=== PATIENT | male | born 1945 | race Caucasian/White ===

== ENCOUNTER 2016-12-20 17:00 | Inpatient (IN) | payer MEDICARE, OTHER ==
[~2016-12-20] VITALS: Ht 170.2 cm; Wt 114.3 kg
[2016-12-20 17:25] VITALS: BP 123/65; PULSE 76; RESP 18; TEMP 99.1; O2SAT 96
[2016-12-20] MEDS ORDERED: RANO500 PO (18:36)
[2016-12-20] MEDS ORDERED: ROSU10 PO (18:36)
[2016-12-20] MEDS ORDERED: LISI10TA3 PO (18:36)
[2016-12-20] MEDS ORDERED: LANTUS2P SQ ×2 (18:36)
[2016-12-20] MEDS ORDERED: NOVONP2 SQ (18:36)
[2016-12-20] MEDS ORDERED: AMLO5TAB2 PO (18:36)
[2016-12-20] MEDS ORDERED: SYNT88TA PO (18:36)
[2016-12-20] MEDS ORDERED: ASPI81TA11 PO (18:36)
[2016-12-20] MEDS ORDERED: NOVOLOGP2 SQ (18:37)
[2016-12-20] MEDS ORDERED: ZOFR4TAB3 SL (18:39)
[2016-12-20] MEDS ORDERED: CLIN1CAP6 PO (18:39)
[2016-12-20] MEDS ORDERED: ZOFR8TAB PO (18:39)
[2016-12-20 19:11] VITALS: BP 154/66; PULSE 74; RESP 18; O2SAT 96
--- NOTE | 2016-12-20 20:01 | PD ---
HPI Chief Complaint: Skin Problem Time Seen by Provider: 19:45 Travel History International Travel<30 days: No Contact w/Intl Traveler<30days: No Traveled to known affect area: No History of Present Illness HPI The patient is a 71-year-old male that complains of right lower leg cellulitis since Saturday, 3 days. He was seen at an urgent care center yesterday and put on Zofran and clindamycin. The cellulitis is not resolving and is still enlarging slightly. The patient is from [place] and wants to go back to [place], tomorrow or day after tomorrow with possible. According to his , he had a fever of 103.8 at home today. He states he does not want to be admitted to the hospital. PFSH Past Medical History Cardiac Catheterization: Yes Cardiovascular Problems: Yes High Cholesterol: Yes Diabetes: Yes Patient Takes Glucophage: No Diminished Hearing: No Hypertension: Yes Thyroid Disease: Yes Tetanus Vaccination: < 5 Years Past Surgical History Coronary Stent: Yes Other Surgery: Yes (CARPAL TUNNEL) Social History Alcohol Use: No Tobacco Use: No Substance Use: No Allergies-Medications (Allergen,Severity, Reaction): Coded Allergies: No Known Allergies (Unverified , 12/20/16) Reported Meds & Prescriptions Reported Meds & Active Scripts Active Reported Zofran Odt (Ondansetron Odt) 4 Mg Tab 8 Mg SL Q6HR PRN Zofran (Ondansetron HCl) 8 Mg Tab 8 Mg PO TID Clindamycin (Clindamycin HCl) 300 Mg Cap 300 Mg PO BID Novolog Inj (Insulin Aspart) 1,000 Unit/10 Ml Vial 0 SQ DIRECTED Sliding Scale as directed. Aspirin EC (Aspirin) 81 Mg Tabdr 81 Mg PO DAILY Lantus Inj (Insulin Glargine) 100 Unit/Ml Inj 46 SQ HS Lantus Inj (Insulin Glargine) 100 Unit/Ml Inj 46 SQ AM Ranexa ER 12 HR (Ranolazine) 500 Mg Tab 500 Mg PO BID Amlodipine (Amlodipine Besylate) 5 Mg Tab 5 Mg PO DAILY Lisinopril 10 Mg Tab 10 Mg PO DAILY Crestor (Rosuvastatin Calcium) 10 Mg Tab 10 Mg PO DAILY Synthroid (Levothyroxine Sodium) 88 Mcg Tab 88 Mcg PO DAILY Review of Systems Except as stated in HPI: all other systems reviewed are Neg Physical Exam Narrative GENERAL: The patient is alert, oriented 3 in slight apparent distress with his right lower leg discomfort. His vital signs show temperature 99.1 but are otherwise normal. SKIN: Warm and dry. There is an erythematous area involving most of the right lower leg, this is consistent with cellulitis. The cellulitis has expanded beyond the lines drawn by the urgent care center doctor. The cellulitis is circumferential for most of the right lower leg. HEAD: Atraumatic. Normocephalic. EYES: Pupils equal and round. No scleral icterus. No injection or drainage. ENT: No nasal bleeding or discharge. Mucous membranes pink and moist. NECK: Trachea midline. No JVD. CARDIOVASCULAR: Regular rate and rhythm. No murmur appreciated. RESPIRATORY: No accessory muscle use. Clear to auscultation. Breath sounds equal bilaterally. GASTROINTESTINAL: Abdomen soft, non-tender, nondistended. Hepatic and splenic margins not palpable. MUSCULOSKELETAL: No obvious deformities. No clubbing. No cyanosis. No edema. NEUROLOGICAL: Awake and alert. No obvious cranial nerve deficits. Motor grossly within normal limits. Normal speech. PSYCHIATRIC: Appropriate mood and affect; insight and judgment normal. Data Data Last Documented VS Vital Signs Date Time Temp Pulse Resp B/P Pulse Ox O2 Delivery O2 Flow Rate FiO2 12/20/16 20:28 73 18 153/61 97 Room Air 12/20/16 17:25 99.1 Orders Complete Blood Count With Diff (12/20/16 20:01) Comprehensive Metabolic Panel (12/20/16 20:01) Blood Culture (12/20/16 20:01) Labs Laboratory Tests Test 12/20/16 20:00 White Blood Count 12.2 TH/MM3 Red Blood Count 3.92 MIL/MM3 Hemoglobin 12.2 GM/DL Hematocrit 35.6 % Mean Corpuscular Volume 90.8 FL Mean Corpuscular Hemoglobin 31.1 PG Mean Corpuscular Hemoglobin 34.2 % Concent Red Cell Distribution Width 12.5 % Platelet Count 117 TH/MM3 Mean Platelet Volume 8.8 FL Neutrophils (%) (Auto) 86.2 % Lymphocytes (%) (Auto) 6.7 % Monocytes (%) (Auto) 6.3 % Eosinophils (%) (Auto) 0.6 % Basophils (%) (Auto) 0.2 % Neutrophils # (Auto) 10.5 TH/MM3 Lymphocytes # (Auto) 0.8 TH/MM3 Monocytes # (Auto) 0.8 TH/MM3 Eosinophils # (Auto) 0.1 TH/MM3 Basophils # (Auto) 0.0 TH/MM3 CBC Comment DIFF FINAL Differential Comment Sodium Level 138 MEQ/L Potassium Level 4.8 MEQ/L Chloride Level 103 MEQ/L Carbon Dioxide Level 25.3 MEQ/L Anion Gap 10 MEQ/L Blood Urea Nitrogen 52 MG/DL Creatinine 2.70 MG/DL Estimat Glomerular Filtration 24 ML/MIN Rate Random Glucose 217 MG/DL Calcium Level 8.8 MG/DL Total Bilirubin 1.0 MG/DL Aspartate Amino Transf 15 U/L (AST/SGOT) Alanine Aminotransferase 16 U/L (ALT/SGPT) Alkaline Phosphatase 86 U/L Total Protein 7.4 GM/DL Albumin 2.7 GM/DL MDM Medical Decision Making Medical Screen Exam Complete: Yes Emergency Medical Condition: Yes Medical Record Reviewed: Yes Differential Diagnosis Cellulitis, allergic reaction, contact dermatitis, sepsis Narrative Course The patient has circumferential cellulitis of the right lower leg. He has a slightly elevated white count and a history of fever of 103.8 at home. He has been on antibiotics but the cellulitis has advanced beyond the line drawn by the urgent care physician. The cellulitis is getting slightly worse since yesterday. Impression: Circumferential cellulitis right lower leg with failure of outpatient treatment. Diagnosis Primary Impression: Cellulitis of right lower extremity without foot Additional Impressions: Insulin dependent diabetes mellitus Hyperglycemia Admitting Information Admitting Physician Requests: Admit Parvez Grant MD Dec 20, 2016 20:01
[2016-12-20 20:13] LABS: AUTOMATED NEUTROPHIL # 10.5 TH/MM3 (1.8-7.7); BASOPHIL % 0.2 % (0.0-2.0); EOSINOPHIL # 0.1 TH/MM3 (0-0.4); EOSINOPHIL % 0.6 % (0.0-4.0); HEMATOCRIT 35.6 % (39.0-51.0); LYMPH % 6.7 % (9.0-44.0); LYMPHOCYTE # 0.8 TH/MM3 (1.0-4.8); MEAN CELL VOLUME 90.8 FL (80.0-100.0); MEAN CORPUSCULAR HEMOGLOBIN 31.1 PG (27.0-34.0); MEAN CORPUSCULAR HGB CONC 34.2 % (32.0-36.0); MONO % 6.3 % (0.0-8.0); NEUT % 86.2 % (16.0-70.0); PLATELET COUNT 117 TH/MM3 (150-450); RED BLOOD COUNT 3.92 MIL/MM3 (4.50-5.90); RED CELL DISTRIBUTION WIDTH 12.5 % (11.6-17.2); WHITE BLOOD COUNT 12.2 TH/MM3 (4.0-11.0)
[2016-12-20 20:16] LABS: HEMO FLAGS DIFF FINAL
[2016-12-20 20:21] LABS: CHLORIDE 103 MEQ/L (98-107); POTASSIUM 4.8 MEQ/L (3.5-5.1); SODIUM (NA) 138 MEQ/L (136-145)
[2016-12-20 20:25] LABS: ANION GAP 10 MEQ/L (5-15); BICARBONATE 25.3 MEQ/L (21.0-32.0); BLOOD UREA NITROGEN 52 MG/DL (7-18)
[2016-12-20 20:28] VITALS: BP 153/61; PULSE 73; RESP 18; O2SAT 97
[2016-12-20 20:28] LABS: ALT (GPT) 16 U/L (12-78); AST (GOT) 15 U/L (15-37); GLOMERULAR FILTRATION RATE 24 ML/MIN (>89)
[2016-12-20 20:31] LABS: ALKALINE PHOSPHATASE 86 U/L (45-117)
[2016-12-20] MEDS ORDERED: MORPHINE SULFATE 4 MG/ML INJ IV PRN (21:30)
[2016-12-20] MEDS ORDERED: DEXTROSE 50% IN WATER 50 ML VIAL(D50) IV PUSH PRN (21:30)
[2016-12-20] MEDS ORDERED: GLUCAGON 1 MG/ML VIAL OTHER PRN (21:30)
[2016-12-20] MEDS ORDERED: BISACODYL 10 MG SUPP PR PRN (21:30)
[2016-12-20] MEDS ORDERED: Vancomycin Consult Pharmacy 1 EA OTHER SCH (21:30)
[2016-12-20] MEDS ORDERED: CEFEPIME INJ 1,000 MG in SODIUM CHLORIDE 0.9% INJ 100 ML IV SCH (21:30)
[2016-12-20] MEDS ORDERED: SODIUM CHLORIDE 0.9% FLUSH 5 ML FLUSH FLUSH PRN (21:30)
[2016-12-20] MEDS ORDERED: ONDANSETRON HCL 4 MG/2 ML VIAL IVP PRN (21:30)
[2016-12-20] MEDS ORDERED: ACETAMINOPHEN 325 MG TAB PO PRN (21:30)
[2016-12-20 21:39] VITALS: BP 140/67; PULSE 74; RESP 18; O2SAT 98
[2016-12-20] MEDS: CEFEPIME INJ 1,000 MG in SODIUM CHLORIDE 0.9% INJ 100 ML IV SCH (21:50)
[2016-12-20] MEDS: SODIUM CHLOR 0.9% 1000 ML INJ 1,000 ML IV SCH (21:58)
[2016-12-20 22:00] LABS: BLOOD, URINE NEG (NEG); GLUCOSE,URINE NEG (NEG); KETONE, URINE NEG (NEG); NITRITE,URINE NEG (NEG); PH, URINE 5.5 (5.0-8.5)
[2016-12-20 22:06] LABS: URINE COLOR AMBER (YELLW/STRAW)
[2016-12-20 22:07] LABS: MUCUS URINE OCC /lpf (OCC); SQUAMOUS EPITHELIAL CELL URINE 0-5 /hpf (0-5)
[2016-12-20 22:08] LABS: RBC, URINE 0-3 /hpf (0-3)
[2016-12-20 22:12] LABS: COMMENT (UR) CULT NOT INDICATED; CULTURE IF INDICATED CULT NOT INDICATED
[2016-12-20] MEDS ORDERED: VANCOMYCIN 1,500 MG/NS 500 ML IV ONE ×2 (23:00)
[2016-12-20 23:45] VITALS: BP 153/73; PULSE 70; RESP 20; TEMP 97.9; O2SAT 98
[2016-12-20 23:51] VITALS: BP 126/62
[2016-12-21] MEDS: LEVOTHYROXINE SODIUM 88 MCG TAB PO SCH (05:23)
[2016-12-21] MEDS: INSULIN ASPART SUPPLEMENTAL SCALE SQ SCH ×4 (05:24→19:57)
[2016-12-21 06:37] LABS: AUTOMATED NEUTROPHIL # 7.4 TH/MM3 (1.8-7.7); BASOPHIL % 0.3 % (0.0-2.0); EOSINOPHIL # 0.1 TH/MM3 (0-0.4); EOSINOPHIL % 1.4 % (0.0-4.0); HEMATOCRIT 31.7 % (39.0-51.0); LYMPH % 13.2 % (9.0-44.0); LYMPHOCYTE # 1.3 TH/MM3 (1.0-4.8); MEAN CELL VOLUME 91.2 FL (80.0-100.0); MEAN CORPUSCULAR HEMOGLOBIN 30.4 PG (27.0-34.0); MEAN CORPUSCULAR HGB CONC 33.3 % (32.0-36.0); MONO % 8.2 % (0.0-8.0); NEUT % 76.9 % (16.0-70.0); PLATELET COUNT 117 TH/MM3 (150-450); RED BLOOD COUNT 3.47 MIL/MM3 (4.50-5.90); RED CELL DISTRIBUTION WIDTH 12.4 % (11.6-17.2); WHITE BLOOD COUNT 9.6 TH/MM3 (4.0-11.0)
[2016-12-21 06:40] LABS: HEMO FLAGS DIFF FINAL
[2016-12-21 06:58] LABS: CHLORIDE 104 MEQ/L (98-107); POTASSIUM 4.5 MEQ/L (3.5-5.1); SODIUM (NA) 140 MEQ/L (136-145)
[2016-12-21 07:02] LABS: ANION GAP 10 MEQ/L (5-15)
[2016-12-21 07:03] LABS: BLOOD UREA NITROGEN 53 MG/DL (7-18)
[2016-12-21 07:05] LABS: ALT (GPT) 18 U/L (12-78); AST (GOT) 19 U/L (15-37)
[2016-12-21 07:06] LABS: GLOMERULAR FILTRATION RATE 25 ML/MIN (>89)
[2016-12-21 07:07] LABS: TOTAL BILIRUBIN ADULT 0.8 MG/DL (0.2-1.0)
[2016-12-21 07:08] LABS: ALKALINE PHOSPHATASE 78 U/L (45-117)
[2016-12-21 08:00] VITALS: BP 131/69; PULSE 70; RESP 18; TEMP 98.5; O2SAT 97
[2016-12-21] MEDS: SODIUM CHLOR 0.9% 1000 ML INJ 1,000 ML IV SCH ×2 (08:09→17:03)
[2016-12-21] MEDS: SODIUM CHLORIDE 0.9% FLUSH 5 ML FLUSH FLUSH SCH ×2 (08:10→20:01)
[2016-12-21] MEDS: ACETAMINOPHEN/HYDROcodone 325 MG/5 MG TAB PO PRN ×3 (08:11→19:56)
[2016-12-21] MEDS: amLODIPine BESYLATE 5 MG TAB PO SCH (08:11)
[2016-12-21] MEDS: ASPIRIN EC 81 MG TABEC PO SCH (08:11)
[2016-12-21] MEDS: RANOLAZINE 500 MG EXTENDED RELEASE TAB PO SCH ×2 (08:11→19:56)
[2016-12-21] MEDS: CEFEPIME INJ 1,000 MG in SODIUM CHLORIDE 0.9% INJ 100 ML IV SCH (08:11)
[2016-12-21] MEDS: ATORVASTATIN 20 MG TAB PO SCH (08:11)
--- NOTE | 2016-12-21 10:53 | HHI.HP ---
[facility] Service [facility] Primary Care Physician Non-Staff Admission Diagnosis circumferential cellulitis rle, IDDM, hyperglycemia Diagnoses: Chief Complaint: Right leg pain and swelling Travel History International Travel<30 Days: No Contact w/Intl Traveler <30 Da: No Traveled to Known Affected Are: No History of Present Illness Patient is a 71-year-old gentleman with known diabetes. He had a cut found up on his right calf and subsequently developed erythema and swelling for the last 5 days. Patient did go to urgent care as outpatient and was given antibiotics. He had difficulty ambulating and in fact had 10 out of 10 pain with putting pressure on this foot despite clindamycin which was prescribed as an outpatient. He did come to the hospital after he had a temperature 103.8 and has been admitted to the hospital for further evaluation of cellulitis of the right lower extremity. He does have diabetes but this appears to have been well -controlled for him with his home regimen of Lantus and with diabetic diet. His pain is better with rest and elevation and worse when he applies pressure. Review of Systems Constitutional: DENIES: Diaphoretic episodes, Fatigue, Fever, Weight gain, Weight loss, Chills, Dizziness, Change in appetite, Night Sweats Endocrine: DENIES: Heat/cold intolerance, Polydipsia, Polyuria, Polyphagia Eyes: DENIES: Blurred vision, Diplopia, Eye inflammation, Eye pain, Vision loss , Photosensitivity, Double Vision Ears, nose, mouth, throat: DENIES: Tinnitus, Hearing loss, Vertigo, Nasal discharge, Oral lesions, Throat pain, Hoarseness, Ear Pain, Running Nose, Epistaxis, Sinus Pain, Toothache, Odynophagia Respiratory: DENIES: Apneas, Cough, Snoring, Wheezing, Hemoptysis, Sputum production, Shortness of breath Cardiovascular: DENIES: Chest pain, Palpitations, Syncope, Dyspnea on Exertion , PND, Lower Extremity Edema, Orthopnea, Claudication Gastrointestinal: DENIES: Abdominal pain, Black stools, Bloody stools, Constipation, Diarrhea, Nausea, Vomiting, Difficulty Swallowing, Anorexia Genitourinary: DENIES: Sexual dysfunction, Urinary frequency, Urinary incontinence, Urgency, Hematuria, Dysuria, Nocturia, Penile Discharge, Testicular Pain, Testicular Swelling Musculoskeletal: COMPLAINS OF: Joint pain, Joint Swelling, DENIES: Muscle aches, Stiffness, Back pain, Neck pain Integumentary: DENIES: Abnormal pigmentation, Nail changes, Pruritus, Rash Hematologic/lymphatic: DENIES: Bruising, Lymphadenopathy Immunologic/allergic: DENIES: Eczema, Urticaria Neurologic: DENIES: Abnormal gait, Headache, Localized weakness, Paresthesias, Seizures, Speech Problems, Tremor, Poor Balance Psychiatric: DENIES: Anxiety, Confusion, Mood changes, Depression, Hallucinations, Agitation, Suicidal Ideation, Homicidal Ideation, Delusions Past Family Social History Past Medical History Diabetes Hypertension Hyperlipidemia Hypothyroid disorder Past Surgical History Carpal tunnel release Reported Medications Reviewed in the medical record, recently was given clindamycin at an urgent care center Allergies: Coded Allergies: No Known Allergies (Unverified , 12/20/16) Active Ordered Medications Reviewed in the medical record Family History Father from sepsis and had a coronary artery disease, mother from complications of dementia Social History Visiting from [place], is , no tobacco and alcohol Retired Physical Exam Vital Signs Vital Signs Date Time Temp Pulse Resp B/P Pulse Ox O2 Delivery O2 Flow Rate FiO2 12/21/16 08:00 98.5 70 18 131/69 97 12/20/16 23:51 73 18 126/62 97 12/20/16 23:45 97.9 70 20 153/73 98 12/20/16 21:39 74 18 12/20/16 21:39 74 18 140/67 98 Room Air 12/20/16 20:28 73 18 153/61 97 Room Air 12/20/16 19:11 74 18 154/66 96 Room Air 12/20/16 19:11 74 18 12/20/16 17:25 99.1 76 18 123/65 96 Physical Exam GENERAL: This is a well-nourished, well-developed patient, in no apparent distress. SKIN: No rashes, ecchymoses or lesions. Cool and dry. HEAD: Atraumatic. Normocephalic. No temporal or scalp tenderness. EYES: Pupils equal round and reactive. Extraocular motions intact. No scleral icterus. No injection or drainage. ENT: Nose without bleeding, purulent drainage or septal hematoma. Throat without erythema, tonsillar hypertrophy or exudate. Uvula midline. Airway patent. NECK: Trachea midline. No JVD or lymphadenopathy. Supple, nontender, no meningeal signs. CARDIOVASCULAR: Regular rate and rhythm without murmurs, gallops, or rubs. RESPIRATORY: Clear to auscultation. Breath sounds equal bilaterally. No wheezes , rales, or rhonchi. GASTROINTESTINAL: Abdomen soft, non-tender, nondistended. No hepato-splenomegaly , or palpable masses. No guarding. MUSCULOSKELETAL: Right lower extremity erythema is improved and edema is improved, other 3 Extremities without clubbing, cyanosis, or edema. No joint tenderness, effusion, or edema noted. No calf tenderness. Negative Homans sign bilaterally. NEUROLOGICAL: Awake and alert. Cranial nerves II through XII intact. Motor and sensory grossly within normal limits. Five out of 5 muscle strength in all muscle groups. Normal speech. Laboratory Laboratory Tests Test 12/20/16 12/20/16 12/21/16 20:00 21:50 05:45 White Blood Count 12.2 9.6 Red Blood Count 3.92 3.47 Hemoglobin 12.2 10.6 Hematocrit 35.6 31.7 Mean Corpuscular Volume 90.8 91.2 Mean Corpuscular Hemoglobin 31.1 30.4 Mean Corpuscular Hemoglobin 34.2 33.3 Concent Red Cell Distribution Width 12.5 12.4 Platelet Count 117 117 Mean Platelet Volume 8.8 8.3 Neutrophils (%) (Auto) 86.2 76.9 Lymphocytes (%) (Auto) 6.7 13.2 Monocytes (%) (Auto) 6.3 8.2 Eosinophils (%) (Auto) 0.6 1.4 Basophils (%) (Auto) 0.2 0.3 Neutrophils # (Auto) 10.5 7.4 Lymphocytes # (Auto) 0.8 1.3 Monocytes # (Auto) 0.8 0.8 Eosinophils # (Auto) 0.1 0.1 Basophils # (Auto) 0.0 0.0 CBC Comment DIFF FINAL DIFF FINAL Differential Comment Sodium Level 138 140 Potassium Level 4.8 4.5 Chloride Level 103 104 Carbon Dioxide Level 25.3 26.0 Anion Gap 10 10 Blood Urea Nitrogen 52 53 Creatinine 2.70 2.60 Estimat Glomerular Filtration 24 25 Rate Random Glucose 217 233 Calcium Level 8.8 8.1 Total Bilirubin 1.0 0.8 Aspartate Amino Transf 15 19 (AST/SGOT) Alanine Aminotransferase 16 18 (ALT/SGPT) Alkaline Phosphatase 86 78 Total Protein 7.4 6.4 Albumin 2.7 2.3 Urine Color JEZ Urine Turbidity CLEAR Urine pH 5.5 Urine Specific [place] 1.019 Urine Protein 30 Urine Glucose (UA) NEG Urine Ketones NEG Urine Occult Blood NEG Urine Nitrite NEG Urine Bilirubin NEG Urine Leukocyte Esterase NEG Urine RBC 0-3 Urine Squamous Epithelial 0-5 Cells Urine Amorphous Sediment FEW Urine Hyaline Casts 6-9 Urine Mucus OCC Microscopic Urinalysis Comment CULT NOT INDICATED Date/Time Procedure Status Source Growth 12/20/16 20:05 Aerobic Blood Culture Received Blood Peripheral Pending 12/20/16 20:05 Anaerobic Blood Culture Received Blood Peripheral Pending Result Diagram: 12/21/1654412/21/16544 Assessment and Plan Problem List: (1) Insulin dependent diabetes mellitus ICD Code: E11.9 Status: Acute Plan: Patient will continue with current management for diabetes. (2) Cellulitis of right lower extremity without foot ICD Code: L03.115 Status: Acute Plan: Patient will continue with vancomycin and cefepime, leukocytosis improved (3) TUNDE (acute kidney injury) ICD Code: N17.9 Status: Acute Plan: Improved. We'll follow renal function well on current antibiotics (4) Hypothyroid ICD Code: E03.9 Status: Acute Plan: Continue with Synthroid (5) HTN (hypertension) ICD Code: I10 Status: Chronic Plan: Patient will continue with amlodipine and lisinopril Assessment and Plan plan of care to be determined by hospital course Code Status full code Discussed Condition With patient, and surgeon/president Physician Certification 2 Midnight Certification Type: Admission for Inpatient Services Order for Inpatient Services The services are ordered in accordance with Medicare regulations or non- Medicare payer requirements, as applicable. In the case of services not specified as inpatient-only, they are appropriately provided as inpatient services in accordance with the 2-midnight benchmark. Estimated LOS (days): 3 3 days is the estimated time the patient will need to remain in the hospital, assuming treatment plan goals are met and no additional complications. Post-Hospital Plan: Amber Merino MD Dec 21, 2016 10:53
[2016-12-21 12:00] VITALS: BP 138/67; PULSE 68; RESP 18; TEMP 98.8; O2SAT 97
[2016-12-21 16:00] VITALS: BP 131/70; PULSE 70; RESP 18; TEMP 98.3; O2SAT 97
[2016-12-21] MEDS: INSULIN DETEMIR 100 UNITS/ML VIAL SQ SCH (19:57)
[2016-12-21 20:00] VITALS: BP 140/69; PULSE 66; RESP 20; TEMP 98.1; O2SAT 96
[2016-12-22] MEDS: ACETAMINOPHEN/HYDROcodone 325 MG/5 MG TAB PO PRN ×3 (02:35→19:23)
[2016-12-22] MEDS: SODIUM CHLOR 0.9% 1000 ML INJ 1,000 ML IV SCH (03:17)
[2016-12-22 04:27] VITALS: BP 140/61; PULSE 69; RESP 20; TEMP 98.3; O2SAT 95
[2016-12-22] MEDS: LEVOTHYROXINE SODIUM 88 MCG TAB PO SCH (06:18)
[2016-12-22] MEDS: INSULIN ASPART SUPPLEMENTAL SCALE SQ SCH ×4 (06:20→20:20)
[2016-12-22 08:00] VITALS: BP 164/76; PULSE 72; RESP 20; TEMP 98.2; O2SAT 98
[2016-12-22] MEDS: RANOLAZINE 500 MG EXTENDED RELEASE TAB PO SCH ×2 (08:38→20:19)
[2016-12-22] MEDS: amLODIPine BESYLATE 5 MG TAB PO SCH (08:38)
[2016-12-22] MEDS: ATORVASTATIN 20 MG TAB PO SCH (08:38)
[2016-12-22] MEDS: SODIUM CHLORIDE 0.9% FLUSH 5 ML FLUSH FLUSH SCH ×2 (08:39→20:19)
[2016-12-22] MEDS: ASPIRIN EC 81 MG TABEC PO SCH (08:39)
[2016-12-22] MEDS: INSULIN DETEMIR 100 UNITS/ML VIAL SQ SCH ×2 (08:39→20:20)
[2016-12-22] MEDS: CEFEPIME INJ 1,000 MG in SODIUM CHLORIDE 0.9% INJ 100 ML IV SCH (10:09)
[2016-12-22] MEDS: VANCOMYCIN INJ 1,500 MG in SODIUM CHLORID 0.9% 500 ML INJ 500 ML IV SCH (11:15)
--- NOTE | 2016-12-22 11:23 | HHI.PR ---
Subjective Remarks Patient seen and evaluated today in follow-up for right lower extremity cellulitis. His been no progression however still is quite edematous and angry looking. Patient able to put minimal pressure which is an improvement from no pressure with admission. White cell count and temperature remained stable. Objective Vitals Vital Signs Date Time Temp Pulse Resp B/P Pulse Ox O2 Delivery O2 Flow Rate FiO2 12/22/16 08:00 98.2 72 20 164/76 98 12/22/16 04:27 98.3 69 20 140/61 95 12/21/16 20:00 98.1 66 20 140/69 96 12/21/16 16:00 98.3 70 18 131/70 97 12/21/16 16:00 98.3 70 18 131/70 97 12/21/16 12:00 98.8 68 18 138/67 97 I/O 12/21/16 12/21/16 12/21/16 12/22/16 12/22/16 12/22/16 07:00 15:00 23:00 07:00 15:00 23:00 Intake Total 820 ml 263 ml 1838 ml 1200 ml Output Total 200 ml Balance 820 ml 63 ml 1838 ml 1200 ml Intake Oral 20 ml IV Total 800 ml 263 ml 1838 ml 1200 ml Output Urine Total 200 ml Result Diagram: 12/21/16 0545 12/22/16 0700 Objective Remarks Right leg still erythematous and edematous, minimal pressure able to be applied per patient GENERAL: This is a well-nourished, well-developed patient, in no apparent distress. CARDIOVASCULAR: Regular rate and rhythm without murmurs, gallops, or rubs. RESPIRATORY: Clear to auscultation. Breath sounds equal bilaterally. No wheezes , rales, or rhonchi. GASTROINTESTINAL: Abdomen soft, non-tender, nondistended. Normal active bowel sounds MUSCULOSKELETAL: Extremities without clubbing, cyanosis, or edema. NEURO: Alert & Oriented x4 to person, place, time, situation. Moves all ext x4 A/P Problem List: (1) Insulin dependent diabetes mellitus ICD Code: E11.9 Status: Chronic Plan: controlled Patient will continue with current management for diabetes. (2) Cellulitis of right lower extremity without foot ICD Code: L03.115 Status: Acute Plan: Improving slowly Patient will continue with vancomycin and cefepime, leukocytosis improved Rule out DVT (3) TUNDE (acute kidney injury) ICD Code: N17.9 Status: Acute Plan: Improved. We'll follow renal function well on current antibiotics (4) Hypothyroid ICD Code: E03.9 Status: Acute Plan: Continue with Synthroid (5) HTN (hypertension) ICD Code: I10 Status: Chronic Plan: Patient will continue with amlodipine and lisinopril Amber Sanchez MD Dec 22, 2016 11:23
[2016-12-22 12:00] VITALS: BP 189/85; PULSE 84; RESP 20; TEMP 97.6; O2SAT 93
--- NOTE | 2016-12-22 13:35 | RADHPO ---
EXAM DATE/TIME: 12/22/2016 13:18 [facility] COMPARISON: No previous studies available for comparison. INDICATIONS : Right leg edema. MEDICAL HISTORY : Hypercholesterolemia. Hypertension. Diabetes. Cellulitis, right leg. SURGICAL HISTORY : Cardiac catheterization. Coronary stent. Orthopedic surgery, right leg. Carpal tunnel release. ENCOUNTER: Initial ACUITY: 3 days PAIN SCORE: 0/10 LOCATION: Right leg. TECHNIQUE: Venous ultrasound of the leg was performed from the inguinal ligament to the proximal calf. Real-juice e, color Doppler and spectral tracing, compression and augmentation techniques were used. FINDINGS: There is normal compressibility of the deep venous system from the inguinal region to the proximal ca lf. No echogenic clot is seen in the lumen of the common femoral, femoral, popliteal, and posterior tibial veins. There is a normal response of the venous system to proximal and distal augmentation an d respiration. CONCLUSION: No DVT in the right leg. Ernie Ash MD on December 22, 2016 at 13:33 Board Certified Radiologist. This report was verified electronically.
[2016-12-22] MEDS: HEPARIN SODIUM - SQ 10,000 UNITS/ML VIAL SQ SCH ×2 (14:55→20:35)
[2016-12-22 16:00] VITALS: BP 164/74; PULSE 67; RESP 20; TEMP 96.5; O2SAT 97
[2016-12-22 20:00] VITALS: BP 162/67; PULSE 73; RESP 18; TEMP 98.8; O2SAT 93
[2016-12-23] VITALS: BP 151/72; PULSE 76; RESP 16; TEMP 98.8; O2SAT 94
[2016-12-23 04:00] VITALS: BP 139/69; PULSE 72; RESP 16; TEMP 98.3; O2SAT 95
[2016-12-23] MEDS: ACETAMINOPHEN/HYDROcodone 325 MG/5 MG TAB PO PRN ×2 (04:14→20:32)
[2016-12-23] MEDS: HEPARIN SODIUM - SQ 10,000 UNITS/ML VIAL SQ SCH ×3 (05:31→22:10)
[2016-12-23] MEDS: LEVOTHYROXINE SODIUM 88 MCG TAB PO SCH (05:31)
[2016-12-23] MEDS: INSULIN ASPART SUPPLEMENTAL SCALE SQ SCH ×4 (06:00→20:33)
--- NOTE | 2016-12-23 07:38 | HHI.PR ---
Subjective Remarks Patient seen today in follow-up for right lower extremity cellulitis. Patient says that he feels better, the erythema and edema in the top of the leg is improved however this appears to be coalescing and top of the foot. Patient says he can put a little more pressure but is still quite painful. He has more flexion/ functional ability of the foot and ankle. Objective Vitals Vital Signs Date Time Temp Pulse Resp B/P Pulse Ox O2 Delivery O2 Flow Rate FiO2 12/23/16 04:00 98.3 72 16 139/69 95 12/23/16 00:00 98.8 76 16 151/72 94 12/22/16 20:00 98.8 73 18 162/67 93 12/22/16 16:00 96.5 67 20 164/74 97 12/22/16 12:00 97.6 84 20 189/85 93 12/22/16 08:00 98.2 72 20 164/76 98 I/O 12/22/16 12/22/16 12/22/16 12/23/16 12/23/16 12/23/16 07:00 15:00 23:00 07:00 15:00 23:00 Intake Total 1200 ml 900 ml 0 ml 640 ml Balance 1200 ml 900 ml 0 ml 640 ml Intake Oral 900 ml 640 ml IV Total 1200 ml 0 ml 0 ml # Voids 2 2 # Bowel Movements 1 0 Result Diagram: 12/21/16 0545 12/23/16 0630 Imaging Last Impressions Lower Extremity Ultrasound 12/22/16 0000 Signed Impressions: Service Date/Time: Thursday, December 22, 2016 13:18 - CONCLUSION: No DVT in the right leg. Ernie Ash MD Objective Remarks Right leg still erythematous and edematous but now only in the foot, improved in function, decreased erythema in the flores CARDIOVASCULAR: Regular rate and rhythm without murmurs, gallops, or rubs. RESPIRATORY: Clear to auscultation. Breath sounds equal bilaterally. No wheezes , rales, or rhonchi. GASTROINTESTINAL: Abdomen soft, non-tender, nondistended. Normal active bowel sounds MUSCULOSKELETAL: Extremities without clubbing, cyanosis, or edema. NEURO: Alert & Oriented x4 to person, place, time, situation. Moves all ext x4 A/P Problem List: (1) Insulin dependent diabetes mellitus ICD Code: E11.9 Status: Chronic Plan: controlled Patient will continue with current management for diabetes. (2) Cellulitis of right lower extremity without foot ICD Code: L03.115 Status: Acute Plan: Improving slowly, and appears to be coalescing in the foot R/O Abscess Patient will continue with vancomycin and cefepime, leukocytosis improved no DVT (3) TUNDE (acute kidney injury) ICD Code: N17.9 Status: Acute Plan: Improved. We'll follow renal function well on current antibiotics Further nephrotoxic injury (4) Hypothyroid ICD Code: E03.9 Status: Acute Plan: Continue with Synthroid (5) HTN (hypertension) ICD Code: I10 Status: Chronic Plan: Controlled essential Patient will continue with amlodipine and lisinopril Amber Sanchez MD Dec 23, 2016 07:37
[2016-12-23 08:00] VITALS: BP 138/71; PULSE 68; RESP 20; TEMP 98; O2SAT 94
[2016-12-23] MEDS: amLODIPine BESYLATE 5 MG TAB PO SCH (08:46)
[2016-12-23] MEDS: INSULIN DETEMIR 100 UNITS/ML VIAL SQ SCH ×2 (08:46→20:32)
[2016-12-23] MEDS: RANOLAZINE 500 MG EXTENDED RELEASE TAB PO SCH ×2 (08:46→20:31)
[2016-12-23] MEDS: ATORVASTATIN 20 MG TAB PO SCH (08:46)
[2016-12-23] MEDS: CEFEPIME INJ 1,000 MG in SODIUM CHLORIDE 0.9% INJ 100 ML IV SCH (08:50)
[2016-12-23] MEDS: SODIUM CHLORIDE 0.9% FLUSH 5 ML FLUSH FLUSH SCH ×2 (08:50→20:32)
[2016-12-23] MEDS: ASPIRIN EC 81 MG TABEC PO SCH (08:50)
--- NOTE | 2016-12-23 10:47 | RADHPO ---
EXAM DATE/TIME: 12/23/2016 10:12 [facility] COMPARISON: No previous studies available for comparison. INDICATIONS : Right foot pain and edema for six days. RADIATION DOSE: 6.12 CTDIvol (mGy) MEDICAL HISTORY : Hypertension. diabetes SURGICAL HISTORY : Right leg surgery ENCOUNTER: Initial ACUITY: 4 - 6 days PAIN SCALE: 6/10 LOCATION: Right foot TECHNIQUE: Volumetric scanning of the foot was performed. Using automated exposure control and adjustment of th e mA and/or kV according to patient size, radiation dose was kept as low as reasonably achievable to obtain optimal diagnostic quality images. FINDINGS: BONES: No evidence of fracture. Alignment is within normal limits. 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 There is some degen erative changes at the PIP and DIP joints. There are mild degenerative changes midtarsal bones. SOFT TISSUES: There is nonspecific edema in subcutaneous soft tissues. No loculated fluid collections are demonstra nataliya. No radiopaque foreign bodies. CONCLUSION: 1. Nonspecific edema in the subcutaneous soft tissues. 2. Mild primary bony degenerative changes of the foot. Jose Beal MD on December 23, 2016 at 10:35 Board Certified Radiologist. This report was verified electronically.
[2016-12-23 12:00] VITALS: BP 166/79; PULSE 68; RESP 20; TEMP 96.9; O2SAT 99
[2016-12-23 16:00] VITALS: BP 158/76; PULSE 65; RESP 18; TEMP 97.2; O2SAT 98
[2016-12-23 20:00] VITALS: BP 150/65; PULSE 67; RESP 18; TEMP 99.6; O2SAT 96
[2016-12-23] MEDS ORDERED: VANCOMYCIN TROUGH XX ONE (21:45)
[2016-12-23] MEDS: VANCOMYCIN INJ 1,500 MG in SODIUM CHLORID 0.9% 500 ML INJ 500 ML IV SCH (22:15)
[2016-12-24] VITALS: BP 137/76; PULSE 66; RESP 18; TEMP 98.1; O2SAT 96
[2016-12-24] MEDS: HEPARIN SODIUM - SQ 10,000 UNITS/ML VIAL SQ SCH ×3 (05:40→20:52)
[2016-12-24] MEDS: LEVOTHYROXINE SODIUM 88 MCG TAB PO SCH (05:41)
[2016-12-24] MEDS: INSULIN ASPART SUPPLEMENTAL SCALE SQ SCH ×4 (05:56→20:53)
[2016-12-24] MEDS: ACETAMINOPHEN/HYDROcodone 325 MG/5 MG TAB PO PRN ×2 (05:56→20:55)
[2016-12-24] MEDS: amLODIPine BESYLATE 5 MG TAB PO SCH (08:24)
[2016-12-24] MEDS: RANOLAZINE 500 MG EXTENDED RELEASE TAB PO SCH ×2 (08:24→20:41)
[2016-12-24] MEDS: ATORVASTATIN 20 MG TAB PO SCH (08:25)
[2016-12-24] MEDS: CEFEPIME INJ 1,000 MG in SODIUM CHLORIDE 0.9% INJ 100 ML IV SCH (08:25)
[2016-12-24] MEDS: INSULIN DETEMIR 100 UNITS/ML VIAL SQ SCH ×2 (08:27→20:52)
[2016-12-24] MEDS: ASPIRIN EC 81 MG TABEC PO SCH (08:49)
[2016-12-24] MEDS: SODIUM CHLORIDE 0.9% FLUSH 5 ML FLUSH FLUSH SCH ×2 (08:49→20:41)
[2016-12-24 09:56] VITALS: BP 122/69; PULSE 67; RESP 16; TEMP 97.3; O2SAT 97
[2016-12-24] MEDS ORDERED: HYDR-3516 PO (11:50)
[2016-12-24] MEDS ORDERED: ZYVO600T PO (11:50)
[2016-12-24] MEDS ORDERED: FUROSEMIDE 20 MG/2 ML VIAL IV PUSH ONE (12:00)
--- NOTE | 2016-12-24 12:14 | HHI.PR ---
Subjective Remarks Patient states that his right foot is feeling much better, less painful and the redness is improved. No fevers. He still feels that the legs are quite tight from edema. Objective Vitals Vital Signs Date Time Temp Pulse Resp B/P Pulse Ox O2 Delivery O2 Flow Rate FiO2 12/24/16 09:56 97.3 67 16 122/69 97 12/24/16 06:56 20 12/24/16 00:00 98.1 66 18 137/76 96 12/23/16 20:00 99.6 67 18 150/65 96 12/23/16 16:00 97.2 65 18 158/76 98 I/O 12/23/16 12/23/16 12/23/16 12/24/16 12/24/16 12/24/16 07:00 15:00 23:00 07:00 15:00 23:00 Intake Total 640 ml 0 ml 550 ml Balance 640 ml 0 ml 550 ml Intake Oral 640 ml IV Total 0 ml 0 ml 550 ml # Voids 2 # Bowel Movements 0 Result Diagram: 12/21/16 0545 12/23/16 0630 Objective Remarks GENERAL: Well-nourished, well-developed very pleasant male patient. SKIN: Warm and dry. HEAD: Normocephalic. EYES: No scleral icterus. No injection or drainage. NECK: Supple, trachea midline. No JVD or lymphadenopathy. CARDIOVASCULAR: Regular rate and rhythm without murmurs, gallops, or rubs. RESPIRATORY: Breath sounds equal bilaterally. No accessory muscle use. GASTROINTESTINAL: Abdomen soft, non-tender, nondistended. EXTREMITIES: 1+ pitting edema bilaterally. The right lower extremity has erythema which is greatly receded from the pen outline, mainly centered now on the top of the foot. No induration or wounds. NEUROLOGICAL: Awake, alert, and oriented x 3. Non-focal. A/P Problem List: (1) Insulin dependent diabetes mellitus ICD Code: E11.9 Status: Chronic (2) Cellulitis of right lower extremity without foot ICD Code: L03.115 Status: Acute (3) TUNDE (acute kidney injury) ICD Code: N17.9 Status: Acute (4) Hypothyroid ICD Code: E03.9 Status: Acute (5) HTN (hypertension) ICD Code: I10 Status: Chronic Assessment and Plan -Right lower extremity cellulitis. Improving. CT scan negative for any abscess. He does have pedal edema in both legs. Doppler was negative for DVT. I will give him 20 mg IV Lasix 1 and start LIVIA hose. The patient states he does have chronic pedal edema. He was encouraged to keep the legs elevated. I will DC the vancomycin and cefepime and start him on Zyvox by mouth. -Acute kidney injury. Improving. Repeat BMP in the morning. -Type 2 diabetes. Slightly hypoglycemic this morning. I will decrease his long -acting insulin while he is inpatient as he is likely more compliant with his diabetic diet while he is here. -Hypertension. Controlled. Continue lisinopril and Norvasc. DVT prophylaxis with heparin subcutaneous.- Discharge Planning Possible discharge home tomorrow. Tosha Flower MD Dec 24, 2016 12:14
[2016-12-24] MEDS: LINEZOLID 600 MG TAB PO SCH ×2 (13:30→20:41)
[2016-12-24 14:17] VITALS: BP 126/61; PULSE 67; RESP 15; TEMP 96.5; O2SAT 97
[2016-12-24 17:56] VITALS: BP 126/61; PULSE 67; RESP 18; TEMP 96.5; O2SAT 97
[2016-12-24 20:00] VITALS: BP 128/90; PULSE 69; RESP 19; TEMP 97.6; O2SAT 99
[2016-12-25] VITALS: BP 144/64; PULSE 64; RESP 18; TEMP 97.1; O2SAT 97
[2016-12-25 05:35] LABS: POTASSIUM 4.4 MEQ/L (3.5-5.1)
[2016-12-25] MEDS: HEPARIN SODIUM - SQ 10,000 UNITS/ML VIAL SQ SCH (06:19)
[2016-12-25] MEDS: LEVOTHYROXINE SODIUM 88 MCG TAB PO SCH (06:20)
[2016-12-25] MEDS: ACETAMINOPHEN/HYDROcodone 325 MG/5 MG TAB PO PRN ×2 (06:20→10:32)
[2016-12-25] MEDS: INSULIN ASPART SUPPLEMENTAL SCALE SQ SCH ×2 (06:27→11:00)
[2016-12-25 08:14] VITALS: BP 142/73; PULSE 68; RESP 18; TEMP 97.3; O2SAT 96
[2016-12-25] MEDS: amLODIPine BESYLATE 5 MG TAB PO SCH (08:14)
[2016-12-25] MEDS: INSULIN DETEMIR 100 UNITS/ML VIAL SQ SCH (08:14)
[2016-12-25] MEDS: SODIUM CHLORIDE 0.9% FLUSH 5 ML FLUSH FLUSH SCH (08:14)
[2016-12-25] MEDS: ASPIRIN EC 81 MG TABEC PO SCH (08:15)
[2016-12-25] MEDS: LINEZOLID 600 MG TAB PO SCH (08:15)
[2016-12-25] MEDS: ATORVASTATIN 20 MG TAB PO SCH (08:15)
[2016-12-25] MEDS: RANOLAZINE 500 MG EXTENDED RELEASE TAB PO SCH (08:15)
--- NOTE | 2016-12-25 11:57 | HHI.DS ---
Discharge Summary Admission Date Dec 20, 2016 at 21:27 Discharge Date: Dec 25, 2016 Admitting Diagnosis circumferential cellulitis rle, IDDM, hyperglycemia (1) Insulin dependent diabetes mellitus ICD Code: E11.9 (2) Cellulitis of right lower extremity without foot ICD Code: L03.115 (3) TUNDE (acute kidney injury) ICD Code: N17.9 (4) Hypothyroid ICD Code: E03.9 (5) HTN (hypertension) ICD Code: I10 Procedures None Brief History - From Admission Patient is a 71-year-old gentleman with known diabetes. He had a cut found up on his right calf and subsequently developed erythema and swelling for the last 5 days. Patient did go to urgent care as outpatient and was given antibiotics. He had difficulty ambulating and in fact had 10 out of 10 pain with putting pressure on this foot despite clindamycin which was prescribed as an outpatient. He did come to the hospital after he had a temperature 103.8 and has been admitted to the hospital for further evaluation of cellulitis of the right lower extremity. He does have diabetes but this appears to have been well -controlled for him with his home regimen of Lantus and with diabetic diet. His pain is better with rest and elevation and worse when he applies pressure. CBC/BMP: 12/21/16 0545 12/25/16 0508 Significant Findings Laboratory Tests Test 12/23/16 12/25/16 06:30 05:08 Creatinine 1.80 MG/DL 1.70 MG/DL (0.60-1.30) (0.60-1.30) Estimat Glomerular Filtration 38 ML/MIN (>89) 40 ML/MIN (>89) Rate Chloride Level 108 MEQ/L (98-107) Blood Urea Nitrogen 37 MG/DL (7-18) PE at Discharge GENERAL: Well-nourished, well-developed very pleasant male patient. SKIN: Warm and dry. HEAD: Normocephalic. EYES: No scleral icterus. No injection or drainage. NECK: Supple, trachea midline. No JVD or lymphadenopathy. CARDIOVASCULAR: Regular rate and rhythm without murmurs, gallops, or rubs. RESPIRATORY: Breath sounds equal bilaterally. No accessory muscle use. GASTROINTESTINAL: Abdomen soft, non-tender, nondistended. EXTREMITIES: 1+ pitting edema bilaterally but improved now with NATALIYA hose. The right lower foot has trace erythema which is nearly resolved. NEUROLOGICAL: Awake, alert, and oriented x 3. Non-focal. Hospital Course The patient was admitted to the hospital. He was found to have acute kidney injury. This improved with IV fluid hydration. His cellulitis improved with IV antibiotics, vancomycin. The patient was transitioned to by mouth Zyvox yesterday. Due to the edema is recommended that he wear NATALIYA hose. The erythema over the right lower extremity has nearly resolved and he only has trace erythema on the right foot. CT was negative for any abscess. He'll be discharged today with prescription for Zyvox. He is planning to return home on Saturday and will be flying back to [place]. I encouraged him to follow-up with his primary care physician upon return and to continue the NATALIYA hose and leg elevation. Pt Condition on Discharge: Stable Discharge Disposition: Discharge Home Discharge Time: > 30 minutes Discharge Instructions DIET: Follow Instructions for: Heart Healthy Diet Activities you can perform: Regular-No Restrictions Other Activity Instructions: wear nataliya hose daily. keep legs elevated when seated. New Medications: Hydrocodone-Acetaminophen (Hydrocodone-Acetaminophen) 5-325 mg Tab 1 TAB PO Q4H PRN PAIN SCALE 3 TO 5 #20 TAB Linezolid (Zyvox) 600 Mg Tab 600 MG PO Q12HR cellulitis #14 TAB Continued Medications: Amlodipine (Amlodipine) 5 Mg Tab 5 MG PO DAILY Blood Pressure Management #[address] Ref [address] (Aspirin EC) 81 Mg Tabdr 81 MG PO DAILY Ref 0 TAB Insulin Aspart Inj (Novolog Inj) 1,000 Unit/10 Ml Vial 0 SQ DIRECTED Sliding Scale as directed. Blood Sugar Management #10 Ref 0 ML Insulin Glargine Inj (Lantus Inj) 100 Unit/Ml Inj 46 SQ AM Insulin Glargine Inj (Lantus Inj) 100 Unit/Ml Inj 46 SQ HS Levothyroxine (Synthroid) 88 Mcg Tab 88 MCG PO DAILY Thyroid #30 Ref 0 TAB Lisinopril (Lisinopril) 10 Mg Tab 10 MG PO DAILY #30 Ref 0 TAB Ondansetron Odt (Zofran Odt) 4 Mg Tab 8 MG SL Q6HR PRN Nausea/Vomiting #30 Ref 0 TAB Ranolazine ER 12 HR (Ranexa ER 12 HR) 500 Mg Tab 500 MG PO BID Chest Pain #60 Ref 0 TAB Rosuvastatin (Crestor) 10 Mg Tab 10 MG PO DAILY Cholesterol Management #30 Ref 0 TAB Discontinued Medications: Ondansetron (Zofran) 8 Mg Tab 8 MG PO TID Nausea/Vomiting Ref 0 TAB Tosha Flower MD Dec 25, 2016 11:57
== END 2016-12-25 12:23 | disposition home or self-care (01) | DRG 603 ==
LOC: PHED 17:00 → PHEDA 21:27 → PH3B 23:45
PROVIDERS: ADMIT Family Medicine; ATTEND Family Medicine
DX: L03.115 Cellulitis of right lower limb (principal); N17.9 Acute kidney failure, unspecified; E11.65 Type 2 diabetes mellitus with hyperglycemia; Z79.4 Long term (current) use of insulin; E03.9 Hypothyroidism, unspecified; I10 Essential (primary) hypertension; E78.5 Hyperlipidemia, unspecified; R60.0 Localized edema
CPT/HCPCS: 73700; 80048; 80053; 80202; 81001; 82565; 82948; 85025; 87040; 93971; 99284; J0692; J1644; J1815; J1940; J3370; J7030; J7040

== ENCOUNTER 2016-12-31 11:39 | Inpatient (IN) | payer MEDICARE, OTHER ==
[~2016-12-31] VITALS: Ht 170.2 cm; Wt 112.1 kg
[~2016-12-31 11:39] MED LIST: AMLO5TAB2 PO; ASPI81TA11 PO; HYDR-3516 PO; LANTUS2P SQ; LISI10TA3 PO; NOVOLOGP2 SQ; RANO500 PO; ROSU10 PO; SYNT88TA PO; ZOFR4TAB3 SL; ZYVO600T PO
[2016-12-31 11:48] VITALS: BP 142/60; PULSE 76; RESP 16; TEMP 97.9; O2SAT 96
--- NOTE | 2016-12-31 12:20 | PD ---
HPI Chief Complaint: Skin Problem Time Seen by Provider: 11:51 Travel History International Travel<30 days: No Contact w/Intl Traveler<30days: No Traveled to known affect area: No History of Present Illness HPI 71-year-old male presents with complaint of cellulitis of his right foot. He was admitted to the hospital on the and discharged on the treatment of cellulitis of his right foot. He had scraped the back of his right leg on December 14 and developed redness. He was initially treated with clindamycin but did not respond. He was admitted to the hospital until the . He has a history of diabetes for 20 years. He has been on linezolid since he was discharged. He said the area of redness seems to have subsided but he thinks the swelling has not subsided. This morning he noted some blistering on the foot. He does not think he has been having fever, he had had fever at the onset of the illness. He has some neuropathy and does have sensation in the foot. He says the pain in the foot is at the level of 2/10. When hospitalized last week he had an ultrasound which was negative for DVT and a CT scan which showed nonspecific soft tissue edema PFSH Past Medical History Heart Rhythm Problems: No Cancer: No Cardiac Catheterization: Yes Cardiovascular Problems: Yes High Cholesterol: Yes Chest Pain: No Congestive Heart Failure: No Diabetes: Yes Patient Takes Glucophage: Yes Diminished Hearing: No Endocrine: Yes Gastrointestinal Disorders: No Genitourinary: No Hypertension: Yes Immune Disorder: No Implanted Vascular Access Dvce: No Musculoskeletal: No Neurologic: No Psychiatric: No Reproductive: No Respiratory: No Thyroid Disease: Yes Past Surgical History Abdominal Surgery: No Cardiac Surgery: Yes (cath 3 yrs ago stent 10 yrs ago) Coronary Stent: Yes Ear Surgery: No Endocrine Surgery: No Eye Surgery: No Genitourinary Surgery: No Gynecologic Surgery: No Neurologic Surgery: No Oral Surgery: No Thoracic Surgery: No Other Surgery: Yes (CARPAL TUNNEL) Social History Alcohol Use: No Tobacco Use: No Substance Use: No Allergies-Medications (Allergen,Severity, Reaction): Coded Allergies: No Known Allergies (Unverified , 12/31/16) Reported Meds & Prescriptions Reported Meds & Active Scripts Active Hydrocodone-Acetaminophen 5-325 mg Tab 1 Tab PO Q4H PRN Zyvox (Linezolid) 600 Mg Tab 600 Mg PO Q12HR Reported Zofran Odt (Ondansetron Odt) 4 Mg Tab 8 Mg SL Q6HR PRN Novolog Inj (Insulin Aspart) 1,000 Unit/10 Ml Vial 0 SQ DIRECTED Sliding Scale as directed. Aspirin EC (Aspirin) 81 Mg Tabdr 81 Mg PO DAILY Lantus Inj (Insulin Glargine) 100 Unit/Ml Inj 46 SQ HS Lantus Inj (Insulin Glargine) 100 Unit/Ml Inj 46 SQ AM Ranexa ER 12 HR (Ranolazine) 500 Mg Tab 500 Mg PO BID Amlodipine (Amlodipine Besylate) 5 Mg Tab 5 Mg PO DAILY Lisinopril 10 Mg Tab 10 Mg PO DAILY Crestor (Rosuvastatin Calcium) 10 Mg Tab 10 Mg PO DAILY Synthroid (Levothyroxine Sodium) 88 Mcg Tab 88 Mcg PO DAILY Review of Systems General / Constitutional: No: Fever, Chills Eyes: No: Diploplia, Blurred Vision HENT: No: Headaches, Vertigo Cardiovascular: No: Chest Pain or Discomfort, Palpitations Respiratory: No: Cough, Shortness of Breath Gastrointestinal: No: Vomiting, Diarrhea Genitourinary: No: Urgency, Frequency Musculoskeletal: No: Myalgias, Arthralgias Skin: Positive Rash, Positive Itching Neurologic: No: Weakness Hematologic/Lymphatic: No: Easy Bruising Physical Exam Narrative GENERAL: Well-developed male SKIN: Warm and dry. The skin of the right leg is erythematous and warm. There is some blistering of the skin. There is diffuse swelling of the lower leg HEAD: Atraumatic. Normocephalic. EYES: Pupils equal and round. No scleral icterus. No injection or drainage. ENT: No nasal bleeding or discharge. Mucous membranes pink and moist. NECK: Trachea midline. No JVD. CARDIOVASCULAR: Regular rate and rhythm. No murmur appreciated. RESPIRATORY: No accessory muscle use. Clear to auscultation. Breath sounds equal bilaterally. GASTROINTESTINAL: Abdomen soft, non-tender, nondistended. Hepatic and splenic margins not palpable. MUSCULOSKELETAL: No obvious deformities. No clubbing. No cyanosis. No edema. NEUROLOGICAL: Awake and alert. No obvious cranial nerve deficits. Motor grossly within normal limits. Normal speech. PSYCHIATRIC: Appropriate mood and affect; insight and judgment normal. Data Data Last Documented VS Vital Signs Date Time Temp Pulse Resp B/P Pulse Ox O2 Delivery O2 Flow Rate FiO2 12/31/16 11:56 18 12/31/16 11:48 97.9 76 142/60 96 Orders Complete Blood Count With Diff (12/31/16 12:13) Comprehensive Metabolic Panel (12/31/16 12:13) Lactic Acid Sepsis Protocol (12/31/16 12:13) Urinalysis - C+S If Indicated (12/31/16 12:13) Blood Culture (12/31/16 12:13) Blood Glucose (12/31/16 12:13) Ecg Monitoring (12/31/16 12:13) Iv Access Insert/Monitor (12/31/16 12:13) Oximetry (12/31/16 12:13) Oxygen Administration (12/31/16 12:13) Labs Laboratory Tests Test 12/31/16 12/31/16 12/31/16 12:30 12:35 12:49 Urine Collection Type CATH Urine Color YELLOW Urine Turbidity SLIGHT Urine pH 5.0 Urine Specific [place] 1.020 Urine Protein 30 mg/dL Urine Glucose (UA) NEG mg/dL Urine Ketones NEG mg/dL Urine Occult Blood SMALL Urine Nitrite NEG Urine Bilirubin NEG Urine Leukocyte Esterase NEG Urine WBC 0-2 /hpf Microscopic Urinalysis Comment CATH-CULT NOT IND Urine Collection Time 1020 White Blood Count 6.5 TH/MM3 Red Blood Count 3.60 MIL/MM3 Hemoglobin 11.1 GM/DL Hematocrit 32.6 % Mean Corpuscular Volume 90.6 FL Mean Corpuscular Hemoglobin 31.0 PG Mean Corpuscular Hemoglobin 34.2 % Concent Red Cell Distribution Width 12.2 % Platelet Count 170 TH/MM3 Mean Platelet Volume 7.2 FL Neutrophils (%) (Auto) 76.3 % Lymphocytes (%) (Auto) 15.4 % Monocytes (%) (Auto) 6.1 % Eosinophils (%) (Auto) 1.9 % Basophils (%) (Auto) 0.3 % Neutrophils # (Auto) 5.0 TH/MM3 Lymphocytes # (Auto) 1.0 TH/MM3 Monocytes # (Auto) 0.4 TH/MM3 Eosinophils # (Auto) 0.1 TH/MM3 Basophils # (Auto) 0.0 TH/MM3 CBC Comment DIFF FINAL Differential Comment Lactic Acid Level 1.5 mmol/L MDM Medical Decision Making Medical Screen Exam Complete: Yes Emergency Medical Condition: Yes Medical Record Reviewed: Yes Differential Diagnosis Differential includes cellulitis of the right leg, failure of outpatient treatment, uncontrolled diabetes Narrative Course Patient still has significant cellulitis and has failed outpatient treatment Diagnosis Primary Impression: Cellulitis of right lower extremity Admitting Information Admitting Physician Requests: Rene Germain MD Dec 31, 2016 12:20
[2016-12-31 12:50] LABS: BLOOD, URINE SMALL (NEG); GLUCOSE,URINE NEG (NEG); KETONE, URINE NEG (NEG); NITRITE,URINE NEG (NEG)
[2016-12-31 12:51] LABS: BASOPHIL % 0.3 % (0.0-2.0); EOSINOPHIL # 0.1 TH/MM3 (0-0.4); EOSINOPHIL % 1.9 % (0.0-4.0); HEMATOCRIT 32.6 % (39.0-51.0); HEMO FLAGS DIFF FINAL; LYMPH % 15.4 % (9.0-44.0); MEAN CELL VOLUME 90.6 FL (80.0-100.0); MEAN CORPUSCULAR HGB CONC 34.2 % (32.0-36.0); MONO % 6.1 % (0.0-8.0); NEUT % 76.3 % (16.0-70.0); PLATELET COUNT 170 TH/MM3 (150-450); RED CELL DISTRIBUTION WIDTH 12.2 % (11.6-17.2); WHITE BLOOD COUNT 6.5 TH/MM3 (4.0-11.0)
[2016-12-31 12:59] LABS: METHOD OF COLLECTION CATH
[2016-12-31 13:00] LABS: URINE COLOR YELLOW (YELLW/STRAW)
[2016-12-31 13:01] LABS: COMMENT (UR) CATH-CULT NOT IND; CULTURE IF INDICATED CATH CULTURE NOT IND; WBC, URINE 0-2 /hpf (0-5)
[2016-12-31] MEDS ORDERED: PIPERACIL-TAZO 4.5 GM PREMIX 100 ML IV ONE (13:30)
[2016-12-31] MEDS ORDERED: VANCOMYCIN INJ 1,000 MG in SODIUM CHLOR 0.9% 250 ML INJ 250 ML IV ONE (13:30)
[2016-12-31 13:35] LABS: CHLORIDE 104 MEQ/L (98-107); POTASSIUM 5.2 MEQ/L (3.5-5.1); SODIUM (NA) 138 MEQ/L (136-145)
[2016-12-31 13:39] LABS: ANION GAP 8 MEQ/L (5-15); BICARBONATE 26.5 MEQ/L (21.0-32.0); BLOOD UREA NITROGEN 39 MG/DL (7-18)
[2016-12-31 13:42] LABS: ALT (GPT) 23 U/L (12-78); AST (GOT) 19 U/L (15-37); GLOMERULAR FILTRATION RATE 30 ML/MIN (>89)
--- NOTE | 2016-12-31 13:43 | HHI.HP ---
HPI Service [facility] Primary Care Physician Non-Staff Admission Diagnosis CELLULITIS RIGHT LEG Diagnoses: (1) Cellulitis of right lower extremity Travel History International Travel<30 Days: No Contact w/Intl Traveler <30 Da: No Traveled to Known Affected Are: No History of Present Illness This is a pleasant 71-year-old male with past medical history of type 2 diabetes, hypertension and chronic pedal edema who is known to me from previous hospital admission who comes to the ER today complaining of swelling and erythema in his right foot. The patient was recently hospitalized for cellulitis of the right foot and calf and was discharged home with a prescription for Zyvox. The patient states that he has been compliant with the Zyvox and have been keeping his leg elevated and wearing the LIVIA hose faithfully. Last night he started to notice the return of some erythema and swelling of the foot. He denies fever or chills. Denies any open wounds or drainage. Review of Systems Except as stated in HPI: all other systems reviewed are Neg Past Family Social History Past Medical History Type 2 diabetes HTN HLD Hypothyroidism Chronic pedal edema Reported Medications Allergies Coded Allergies Type Severity Reaction Last Updated Verified No Known Allergies 12/31/16 No Active Scripts Medications Dose Route/Sig Days Date Category Dose Instructions Hydrocodone-Acetaminophen 5-325 mg Tab 1 Tab PO Q4H PRN 12/24/16 Rx Zyvox (Linezolid) 600 Mg Tab 600 Mg PO Q12HR 12/24/16 Rx Zofran Odt (Ondansetron Odt) 4 Mg Tab 8 Mg SL Q6HR PRN 12/20/16 Reported Novolog Inj (Insulin Aspart) 1,000 Unit/10 Ml Vial 0 SQ DIRECTED 12/20/16 Reported Sliding Scale as directed. Aspirin EC (Aspirin) 81 Mg Tabdr 81 Mg PO DAILY 12/20/16 Reported Lantus Inj (Insulin Glargine) 100 Unit/Ml Inj 46 SQ HS 12/20/16 Reported Lantus Inj (Insulin Glargine) 100 Unit/Ml Inj 46 SQ AM 12/20/16 Reported Ranexa ER 12 HR (Ranolazine) 500 Mg Tab 500 Mg PO BID 12/20/16 Reported Amlodipine (Amlodipine Besylate) 5 Mg Tab 5 Mg PO DAILY 12/20/16 Reported Lisinopril 10 Mg Tab 10 Mg PO DAILY 12/20/16 Reported Crestor (Rosuvastatin Calcium) 10 Mg Tab 10 Mg PO DAILY 12/20/16 Reported Synthroid (Levothyroxine Sodium) 88 Mcg Tab 88 Mcg PO DAILY 12/20/16 Reported Allergies: Coded Allergies: No Known Allergies (Unverified , 12/31/16) Family History Reviewed and no changes Social History No alcohol tobacco or drug use. He is and lives out of state in [place] with his . Physical Exam Vital Signs Vital Signs Date Time Temp Pulse Resp B/P Pulse Ox O2 Delivery O2 Flow Rate FiO2 12/31/16 11:56 18 12/31/16 11:48 97.9 76 16 142/60 96 Physical Exam GENERAL: Well-nourished, well-developed pleasant male patient. SKIN: Warm and dry. HEAD: Normocephalic. EYES: No scleral icterus. No injection or drainage. NECK: Supple, trachea midline. No JVD or lymphadenopathy. CARDIOVASCULAR: Regular rate and rhythm without murmurs, gallops, or rubs. RESPIRATORY: Breath sounds equal and CTA bilaterally. No accessory muscle use. GASTROINTESTINAL: Abdomen soft, non-tender, nondistended. EXTREMITIES: Right lower calf with 2+ edema, erythema from upper flores down to foot, with superficial blisters overlying the medial foot, no induration or streaking. Left calve with 1+ edema. NEUROLOGICAL: Awake, alert, and oriented x 3. Non-focal. Laboratory Laboratory Tests Test 12/31/16 12/31/16 12/31/16 12/31/16 12:30 12:35 12:49 13:18 Urine Collection Type CATH Urine Color YELLOW Urine Turbidity SLIGHT Urine pH 5.0 Urine Specific [place] 1.020 Urine Protein 30 Urine Glucose (UA) NEG Urine Ketones NEG Urine Occult Blood SMALL Urine Nitrite NEG Urine Bilirubin NEG Urine Leukocyte Esterase NEG Urine WBC 0-2 Microscopic Urinalysis Comment CATH-CULT NOT IND Urine Collection Time 1020 White Blood Count 6.5 Red Blood Count 3.60 Hemoglobin 11.1 Hematocrit 32.6 Mean Corpuscular Volume 90.6 Mean Corpuscular Hemoglobin 31.0 Mean Corpuscular Hemoglobin 34.2 Concent Red Cell Distribution Width 12.2 Platelet Count 170 Mean Platelet Volume 7.2 Neutrophils (%) (Auto) 76.3 Lymphocytes (%) (Auto) 15.4 Monocytes (%) (Auto) 6.1 Eosinophils (%) (Auto) 1.9 Basophils (%) (Auto) 0.3 Neutrophils # (Auto) 5.0 Lymphocytes # (Auto) 1.0 Monocytes # (Auto) 0.4 Eosinophils # (Auto) 0.1 Basophils # (Auto) 0.0 CBC Comment DIFF FINAL Differential Comment Lactic Acid Level 1.5 Sodium Level 138 Potassium Level 5.2 Chloride Level 104 Carbon Dioxide Level 26.5 Anion Gap 8 Blood Urea Nitrogen 39 Random Glucose 224 Calcium Level 8.3 Albumin 2.5 Date/Time Procedure Status Source Growth 12/31/16 12:49 Aerobic Blood Culture Received Blood Peripheral Pending 12/31/16 12:49 Anaerobic Blood Culture Received Blood Peripheral Pending Result Diagram: 12/31/16 1235 12/31/16 1318 Assessment and Plan Assessment and Plan -Recurrent cellulitis of the right leg and foot. The patient had been discharged home on Zyvox. He previously failed outpatient treatment with clindamycin. He may have a gram-negative organism. We will admit for failed outpatient treatment with cellulitis, put him on vancomycin and cefepime. I will give him a dose of Lasix now. Apply LIVIA hose and keep the leg elevated. He has no signs of sepsis. -TUNDE - he likely has some underlying chronic kidney disease as well. He has mild hyperkalemia which resolved with Lasix. Will repeat BMP in the morning. -Type 2 diabetes - will place him on basal insulin and start sliding scale insulin with Accu-Cheks. -HTN - resume home medications. -Hypothyroidism - continue Synthroid. -Chronic pedal edema - leg elevation with LIVIA hose. -DVT prophylaxis with SCDs. Tosha Flower MD Dec 31, 2016 13:43
[2016-12-31 13:44] LABS: TOTAL BILIRUBIN ADULT 0.8 MG/DL (0.2-1.0)
[2016-12-31 13:45] LABS: ALKALINE PHOSPHATASE 58 U/L (45-117)
[2016-12-31 14:00] VITALS: O2SAT 96
[2016-12-31] MEDS ORDERED: SODIUM CHLORIDE 0.9% FLUSH 5 ML FLUSH FLUSH PRN (14:00)
[2016-12-31] MEDS ORDERED: NALOXONE HCL 0.4 MG/ML AMP IV PRN (14:00)
[2016-12-31] MEDS ORDERED: ACETAMINOPHEN 325 MG TAB PO PRN (14:00)
[2016-12-31] MEDS ORDERED: Vancomycin Consult Pharmacy 1 EA OTHER SCH (14:00)
[2016-12-31 14:14] VITALS: BP 146/68; PULSE 69; RESP 16; O2SAT 95
[2016-12-31 15:00] VITALS: BP 136/68; PULSE 67; RESP 20; TEMP 98.2; O2SAT 97
[2016-12-31] MEDS ORDERED: VANCOMYCIN 1,000 MG/NS 250 ML IV ONE ×2 (15:00)
[2016-12-31] MEDS: DOCUSATE SODIUM 100 MG CAP PO SCH (15:39)
[2016-12-31] MEDS: SODIUM CHLOR 0.9% 1000 ML INJ 1,000 ML IV SCH (15:39)
[2016-12-31] MEDS: ENOXAPARIN SODIUM 40 MG/0.4 ML SYRINGE SQ SCH (15:40)
[2016-12-31 16:00] VITALS: BP 131/69; PULSE 61; RESP 20; TEMP 98.4; O2SAT 96
[2016-12-31 20:00] VITALS: BP 149/74; PULSE 70; RESP 19; TEMP 97.9; O2SAT 96
[2016-12-31] MEDS: CEFEPIME INJ 1,000 MG in SODIUM CHLORIDE 0.9% INJ 100 ML IV SCH (20:44)
[2016-12-31] MEDS: SODIUM CHLORIDE 0.9% FLUSH 5 ML FLUSH FLUSH SCH (20:48)
[2016-12-31] MEDS: ACETAMINOPHEN/HYDROcodone 325 MG/5 MG TAB PO PRN (20:50)
[2017-01-01] VITALS: BP 142/70; PULSE 77; RESP 18; TEMP 97.8; O2SAT 95
[2017-01-01] MEDS: DOCUSATE SODIUM 100 MG CAP PO SCH ×2 (02:00→12:35)
[2017-01-01] MEDS: SODIUM CHLOR 0.9% 1000 ML INJ 1,000 ML IV SCH ×2 (02:07→17:00)
[2017-01-01] MEDS: ACETAMINOPHEN/HYDROcodone 325 MG/5 MG TAB PO PRN ×3 (06:25→21:31)
[2017-01-01 07:09] LABS: POTASSIUM 4.5 MEQ/L (3.5-5.1)
[2017-01-01 07:17] LABS: BICARBONATE 26.9 MEQ/L (21.0-32.0)
[2017-01-01] MEDS: CEFEPIME INJ 1,000 MG in SODIUM CHLORIDE 0.9% INJ 100 ML IV SCH ×2 (07:59→21:27)
[2017-01-01 08:00] VITALS: BP 157/76; PULSE 68; RESP 20; TEMP 97.9; O2SAT 96
[2017-01-01] MEDS: SODIUM CHLORIDE 0.9% FLUSH 5 ML FLUSH FLUSH SCH ×2 (08:00→21:00)
[2017-01-01] MEDS ORDERED: GLUCAGON 1 MG/ML VIAL OTHER PRN (08:30)
[2017-01-01] MEDS ORDERED: DEXTROSE 50% IN WATER 50 ML VIAL(D50) IV PUSH PRN (08:30)
[2017-01-01] MEDS ORDERED: NON-FORMULARY DRUG (Rosuvastatin (Crestor) 10 MG) PO SCH (09:00)
[2017-01-01] MEDS: ATORVASTATIN 20 MG TAB PO SCH (09:25)
[2017-01-01] MEDS: amLODIPine BESYLATE 5 MG TAB PO SCH (09:25)
[2017-01-01] MEDS: LEVOTHYROXINE SODIUM 88 MCG TAB PO SCH (09:25)
[2017-01-01] MEDS: ASPIRIN EC 81 MG TABEC PO SCH (09:25)
[2017-01-01] MEDS: FUROSEMIDE 20 MG/2 ML VIAL IV PUSH SCH ×2 (09:26→16:59)
[2017-01-01 12:00] VITALS: BP 143/82; PULSE 70; RESP 20; TEMP 97.3; O2SAT 96
[2017-01-01] MEDS ORDERED: VANCOMYCIN INJ 1,000 MG in SODIUM CHLOR 0.9% 250 ML INJ 250 ML IV SCH (12:00)
[2017-01-01] MEDS: INSULIN ASPART SUPPLEMENTAL SCALE SQ SCH ×3 (12:34→21:32)
[2017-01-01] MEDS: RANOLAZINE 500 MG EXTENDED RELEASE TAB PO SCH ×2 (12:34→21:31)
--- NOTE | 2017-01-01 13:05 | HHI.PR ---
Subjective Remarks No fevers. The patient and the patient's feels that the erythema is improving. Objective Vitals Vital Signs Date Time Temp Pulse Resp B/P Pulse Ox O2 Delivery O2 Flow Rate FiO2 01/01/17 08:00 97.9 68 20 157/76 96 01/01/17 07:25 18 01/01/17 00:00 97.8 77 18 142/70 95 12/31/16 20:00 97.9 70 19 149/74 96 12/31/16 16:00 98.4 61 20 131/69 96 12/31/16 15:00 98.2 67 20 136/68 97 12/31/16 14:14 69 16 146/68 95 Room Air 12/31/16 14:00 96 Room Air 12/31/16 14:00 96 I/O 12/31/16 12/31/16 12/31/16 01/01/17 01/01/17 01/01/17 07:00 15:00 23:00 07:00 15:00 23:00 Intake Total 200 ml 899 ml 862 ml Output Total 300 ml Balance 200 ml 899 ml 562 ml Intake Oral 200 ml 240 ml 240 ml IV Total 659 ml 622 ml Output Urine Total 300 ml # Voids 2 # Bowel Movements 0 0 Result Diagram: 12/31/16 1235 01/01/17 0600 Objective Remarks GENERAL: Well-nourished, well-developed patient. SKIN: Warm and dry. HEAD: Normocephalic. EYES: No scleral icterus. No injection or drainage. NECK: Supple, trachea midline. No JVD or lymphadenopathy. CARDIOVASCULAR: Regular rate and rhythm without murmurs, gallops, or rubs. RESPIRATORY: Breath sounds equal bilaterally. No accessory muscle use. GASTROINTESTINAL: Abdomen soft, non-tender, nondistended. EXTREMITIES: Dull erythema of the right flores Patric foot with 2+ edema. Superficial fluid blisters over the foot. No streaking. No induration. 1+ edema left lower extremity. NEUROLOGICAL: Awake, alert, and oriented x 3. Non-focal. 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 The patient had been discharged home on Zyvox. He previously failed outpatient treatment with clindamycin. He may have a gram-negative organism. We will admit for failed outpatient treatment with cellulitis, continue vancomycin and cefepime. For appears improved today. Lasix 20 mg IV twice a day. Apply LIVIA hose and keep the leg elevated. -TUNDE - he likely has some underlying chronic kidney disease as well. Improved today. Will repeat BMP in the morning. -Type 2 diabetes -continue basal insulin and start sliding scale insulin with Accu-Cheks. -HTN - resume home medications. -Hypothyroidism - continue Synthroid. -Chronic pedal edema - leg elevation with LIVIA hose. -DVT prophylaxis with SCDs. Tosha Flower MD Jan 01, 2017 13:05
[2017-01-01 16:00] VITALS: BP 136/65; PULSE 65; RESP 20; TEMP 98.2; O2SAT 94
[2017-01-01] MEDS: ENOXAPARIN SODIUM 40 MG/0.4 ML SYRINGE SQ SCH (16:58)
[2017-01-01 20:00] VITALS: BP 144/76; PULSE 68; RESP 18; TEMP 97.4; O2SAT 96
[2017-01-01] MEDS: INSULIN DETEMIR 100 UNITS/ML VIAL SQ SCH (21:32)
[2017-01-02] VITALS: BP 143/75; PULSE 71; RESP 18; TEMP 97.5; O2SAT 96
[2017-01-02] MEDS: DOCUSATE SODIUM 100 MG CAP PO SCH ×2 (01:12→11:59)
[2017-01-02] MEDS: SODIUM CHLOR 0.9% 1000 ML INJ 1,000 ML IV SCH ×3 (01:34→20:52)
[2017-01-02 05:31] LABS: POTASSIUM 4.8 MEQ/L (3.5-5.1)
[2017-01-02 05:35] LABS: BICARBONATE 29.4 MEQ/L (21.0-32.0)
[2017-01-02] MEDS: ACETAMINOPHEN/HYDROcodone 325 MG/5 MG TAB PO PRN ×2 (05:58→22:44)
[2017-01-02] MEDS: LEVOTHYROXINE SODIUM 88 MCG TAB PO SCH (05:58)
[2017-01-02] MEDS: INSULIN ASPART SUPPLEMENTAL SCALE SQ SCH ×4 (05:59→20:49)
[2017-01-02] MEDS: ONDANSETRON HCL 4 MG/2 ML VIAL IVP PRN (06:09)
[2017-01-02] MEDS: SODIUM CHLORIDE 0.9% FLUSH 5 ML FLUSH FLUSH SCH ×2 (07:44→20:51)
[2017-01-02 08:00] VITALS: BP 148/74; PULSE 75; RESP 20; TEMP 96.7; O2SAT 92
[2017-01-02] MEDS: ASPIRIN EC 81 MG TABEC PO SCH (09:29)
[2017-01-02] MEDS: amLODIPine BESYLATE 5 MG TAB PO SCH (09:29)
[2017-01-02] MEDS: INSULIN DETEMIR 100 UNITS/ML VIAL SQ SCH ×2 (09:29→20:51)
[2017-01-02] MEDS: RANOLAZINE 500 MG EXTENDED RELEASE TAB PO SCH ×2 (09:29→20:51)
[2017-01-02] MEDS: FUROSEMIDE 20 MG/2 ML VIAL IV PUSH SCH ×2 (09:29→17:18)
[2017-01-02] MEDS: ATORVASTATIN 20 MG TAB PO SCH (09:29)
[2017-01-02] MEDS: LISINOPRIL 10 MG TAB PO SCH (09:29)
[2017-01-02] MEDS: CEFEPIME INJ 1,000 MG in SODIUM CHLORIDE 0.9% INJ 100 ML IV SCH ×2 (09:29→20:51)
[2017-01-02] MEDS ORDERED: Vancomycin Consult Pharmacy 1 EA OTHER SCH (10:45)
--- NOTE | 2017-01-02 10:59 | HHI.PR ---
Subjective Remarks Patient seen and evaluated in follow-up for cellulitis of the right lower extremity. Overall appears improved, edema still present. Patient has some sloughing and purulent areas which have developed since my last exam. Tolerating current IV antibiotics Objective Vitals Vital Signs Date Time Temp Pulse Resp B/P Pulse Ox O2 Delivery O2 Flow Rate FiO2 01/02/17 08:00 96.7 75 20 148/74 92 01/02/17 00:00 97.5 71 18 143/75 96 01/01/17 20:00 97.4 68 18 144/76 96 01/01/17 17:57 18 01/01/17 16:00 98.2 65 20 136/65 94 01/01/17 12:00 97.3 70 20 143/82 96 I/O 01/01/17 01/01/17 01/01/17 01/02/17 01/02/17 01/02/17 07:00 15:00 23:00 07:00 15:00 23:00 Intake Total 862 ml 890 ml 1523 ml 679 ml Output Total 300 ml 400 ml Balance 562 ml 490 ml 1523 ml 679 ml Intake Oral 240 ml 890 ml IV Total 622 ml 1523 ml 679 ml Output Urine Total 300 ml 400 ml # Voids 6 # Bowel Movements 0 0 Result Diagram: 12/31/16 1235 01/02/17 0505 Objective Remarks Right lower extremity edema with minimal erythema, lateral sloughing areas GENERAL: This is a well-nourished, well-developed patient, in no apparent distress. CARDIOVASCULAR: Regular rate and rhythm without murmurs, gallops, or rubs. RESPIRATORY: Clear to auscultation. Breath sounds equal bilaterally. No wheezes , rales, or rhonchi. GASTROINTESTINAL: Abdomen soft, non-tender, nondistended. Normal active bowel sounds MUSCULOSKELETAL: Extremities without clubbing, cyanosis, or edema. NEURO: Alert & Oriented x4 to person, place, time, situation. Moves all ext x4 A/P Problem List: (1) Cellulitis of right lower extremity ICD Code: L03.115 Status: Acute Plan: Patient on vancomycin and cefepime for now. Renal function stable Failed Clinda, ZYvox (2) DM2 (diabetes mellitus, type 2) ICD Code: E11.9 Status: Acute Plan: Continue Lantus and sliding scale with diabetic diet (3) TUNDE (acute kidney injury) ICD Code: N17.9 Status: Acute Plan: Improved, avoid further nephrotoxic injury Discharge Planning Likely home one to 2 days on oral antibiotics Amber Adams MD Jan 02, 2017 10:59
[2017-01-02] MEDS: ENOXAPARIN SODIUM 40 MG/0.4 ML SYRINGE SQ SCH (11:59)
[2017-01-02 12:00] VITALS: BP 143/74; PULSE 73; RESP 20; TEMP 97.4; O2SAT 95
[2017-01-02] MEDS: VANCOMYCIN INJ 1,500 MG in SODIUM CHLORID 0.9% 500 ML INJ 500 ML IV SCH ×2 (13:05→23:47)
[2017-01-02 16:00] VITALS: BP 151/75; PULSE 75; RESP 20; TEMP 97.4; O2SAT 96
[2017-01-02 20:00] VITALS: BP 155/72; PULSE 67; RESP 20; TEMP 97.2; O2SAT 96
[2017-01-03] VITALS (7 sets, daily range): BP systolic 132–189; BP diastolic 69–89; PULSE 69–88; RESP 18–20; TEMP 97–98.4; O2SAT 92–98
[2017-01-03] MEDS: DOCUSATE SODIUM 100 MG CAP PO SCH ×2 (01:39→12:33)
[2017-01-03] MEDS: ACETAMINOPHEN/HYDROcodone 325 MG/5 MG TAB PO PRN ×3 (03:13→21:35)
[2017-01-03] MEDS: LEVOTHYROXINE SODIUM 88 MCG TAB PO SCH (06:04)
[2017-01-03] MEDS: INSULIN ASPART SUPPLEMENTAL SCALE SQ SCH ×4 (06:08→21:41)
[2017-01-03] MEDS: CEFEPIME INJ 1,000 MG in SODIUM CHLORIDE 0.9% INJ 100 ML IV SCH (08:53)
[2017-01-03] MEDS: LISINOPRIL 10 MG TAB PO SCH (08:54)
[2017-01-03] MEDS: ATORVASTATIN 20 MG TAB PO SCH (08:54)
[2017-01-03] MEDS: INSULIN DETEMIR 100 UNITS/ML VIAL SQ SCH ×2 (08:54→21:37)
[2017-01-03] MEDS: SODIUM CHLORIDE 0.9% FLUSH 5 ML FLUSH FLUSH SCH ×2 (08:55→21:35)
[2017-01-03] MEDS: FUROSEMIDE 20 MG/2 ML VIAL IV PUSH SCH (08:55)
[2017-01-03] MEDS: amLODIPine BESYLATE 5 MG TAB PO SCH (08:55)
[2017-01-03] MEDS: ASPIRIN EC 81 MG TABEC PO SCH (08:55)
[2017-01-03] MEDS: RANOLAZINE 500 MG EXTENDED RELEASE TAB PO SCH ×2 (08:56→21:35)
--- NOTE | 2017-01-03 10:20 | HHI.PR ---
Subjective Remarks Patient seen and evaluated today in follow-up for cellulitis of the right foot. There is some discoloration of the fourth digit today. He says he has more pain there. Overall erythema and edema are better. Although there is some desquamation Care plan discussed with yesterday Discussed with patient and with nursing team today Objective Vitals Vital Signs Date Time Temp Pulse Resp B/P Pulse Ox O2 Delivery O2 Flow Rate FiO2 01/03/17 08:00 98.2 69 18 136/69 95 01/03/17 05:10 168/70 01/03/17 04:00 97.0 88 18 189/89 92 01/03/17 00:00 97.8 79 18 171/88 92 01/02/17 20:00 97.2 67 20 155/72 96 01/02/17 16:00 97.4 75 20 151/75 96 01/02/17 12:00 97.4 73 20 143/74 95 I/O 01/02/17 01/02/17 01/02/17 01/03/17 01/03/17 01/03/17 07:00 15:00 23:00 07:00 15:00 23:00 Intake Total 679 ml 1000 ml 1206 ml 1255 ml Balance 679 ml 1000 ml 1206 ml 1255 ml Intake Oral 1000 ml 240 ml 120 ml IV Total 679 ml 966 ml 1135 ml # Voids 5 2 2 # Bowel Movements 2 0 0 Result Diagram: 12/31/16 1235 01/02/17 0505 Objective Remarks Right lower extremity edema with minimal erythema, lateral sloughing areas GENERAL: This is a well-nourished, well-developed patient, in no apparent distress. CARDIOVASCULAR: Regular rate and rhythm without murmurs, gallops, or rubs. RESPIRATORY: Clear to auscultation. Breath sounds equal bilaterally. No wheezes , rales, or rhonchi. GASTROINTESTINAL: Abdomen soft, non-tender, nondistended. Normal active bowel sounds MUSCULOSKELETAL: Extremities without clubbing, cyanosis, or edema. NEURO: Alert & Oriented x4 to person, place, time, situation. Moves all ext x4 A/P Problem List: (1) Cellulitis of right lower extremity ICD Code: L03.115 Status: Acute Plan: Patient trial of Bactrim and doxy, podiatry consult for third toe discoloration Add antifungal cream (2) DM2 (diabetes mellitus, type 2) ICD Code: E11.9 Status: Acute Plan: Controlled. Continue Lantus and sliding scale with diabetic diet (3) TUNDE (acute kidney injury) ICD Code: N17.9 Status: Acute Plan: Resolved. Discharge Planning Likely home one to 2 days on oral antibiotics Amber Adams MD Jan 03, 2017 10:20
[2017-01-03] MEDS ORDERED: TOLNAFTATE 1% CREAM 15 GM TOPICAL SCH (12:00)
[2017-01-03] MEDS: TOLNAFTATE 1% CREAM 15 GM TOPICAL SCH ×2 (16:29→22:56)
[2017-01-03] MEDS: ENOXAPARIN SODIUM 40 MG/0.4 ML SYRINGE SQ SCH (16:31)
[2017-01-03] MEDS: FUROSEMIDE 20 MG TAB PO SCH (16:37)
[2017-01-03] MEDS: DOXYCYCLINE HYCLATE 100 MG TAB PO SCH (21:35)
[2017-01-03] MEDS: SULFAMETHOXAZOLE-TRIMETHOPRIM DS 800-160 MG TAB PO SCH (21:35)
[2017-01-03] MEDS: ONDANSETRON HCL 4 MG/2 ML VIAL IVP PRN (22:19)
[2017-01-04] VITALS: BP 155/80; PULSE 77; RESP 20; TEMP 98.7; O2SAT 97
[2017-01-04] MEDS: DOCUSATE SODIUM 100 MG CAP PO SCH ×3 (01:31→23:52)
[2017-01-04] MEDS: LEVOTHYROXINE SODIUM 88 MCG TAB PO SCH (05:46)
[2017-01-04] MEDS: INSULIN ASPART SUPPLEMENTAL SCALE SQ SCH ×4 (05:48→21:00)
[2017-01-04 08:00] VITALS: BP 151/83; PULSE 74; RESP 17; TEMP 98.4; O2SAT 96
[2017-01-04] MEDS: DOXYCYCLINE HYCLATE 100 MG TAB PO SCH ×2 (08:24→21:13)
[2017-01-04] MEDS: INSULIN DETEMIR 100 UNITS/ML VIAL SQ SCH ×2 (08:24→21:14)
[2017-01-04] MEDS: FUROSEMIDE 20 MG TAB PO SCH ×2 (08:25→16:39)
[2017-01-04] MEDS: ACETAMINOPHEN/HYDROcodone 325 MG/5 MG TAB PO PRN ×2 (08:25→21:13)
[2017-01-04] MEDS: ASPIRIN EC 81 MG TABEC PO SCH (08:26)
[2017-01-04] MEDS: SULFAMETHOXAZOLE-TRIMETHOPRIM DS 800-160 MG TAB PO SCH ×2 (08:26→21:13)
[2017-01-04] MEDS: amLODIPine BESYLATE 5 MG TAB PO SCH (08:26)
[2017-01-04] MEDS: RANOLAZINE 500 MG EXTENDED RELEASE TAB PO SCH ×2 (08:26→21:13)
[2017-01-04] MEDS: ATORVASTATIN 20 MG TAB PO SCH (08:26)
[2017-01-04] MEDS: LISINOPRIL 10 MG TAB PO SCH (08:26)
[2017-01-04] MEDS: TOLNAFTATE 1% CREAM 15 GM TOPICAL SCH ×2 (08:29→21:21)
[2017-01-04] MEDS: SODIUM CHLORIDE 0.9% FLUSH 5 ML FLUSH FLUSH SCH ×2 (08:31→21:13)
--- NOTE | 2017-01-04 10:09 | HHI.PR ---
Subjective Remarks Patient seen and evaluated in follow-up for cellulitis of the right lower extremity. No new events overnight. Care plan discussed with nursing team, patient and podiatry. Objective Vitals Vital Signs Date Time Temp Pulse Resp B/P Pulse Ox O2 Delivery O2 Flow Rate FiO2 01/04/17 08:00 98.4 74 17 151/83 96 01/04/17 00:00 98.7 77 20 155/80 97 01/03/17 20:00 98.4 70 20 158/76 98 01/03/17 16:00 97.8 71 18 141/72 97 01/03/17 12:00 98.0 70 19 132/71 96 I/O 01/03/17 01/03/17 01/03/17 01/04/17 01/04/17 01/04/17 07:00 15:00 23:00 07:00 15:00 23:00 Intake Total 1255 ml 420 ml 420 ml 400 ml Balance 1255 ml 420 ml 420 ml 400 ml Intake Oral 120 ml 420 ml 420 ml 400 ml IV Total 1135 ml # Voids 2 2 1 # Bowel Movements 0 0 0 Result Diagram: 12/31/16 1235 01/02/17 0505 Objective Remarks Right lower extremity edema with minimal erythema, lateral sloughing areas GENERAL: This is a well-nourished, well-developed patient, in no apparent distress. CARDIOVASCULAR: Regular rate and rhythm without murmurs, gallops, or rubs. RESPIRATORY: Clear to auscultation. Breath sounds equal bilaterally. No wheezes , rales, or rhonchi. GASTROINTESTINAL: Abdomen soft, non-tender, nondistended. Normal active bowel sounds MUSCULOSKELETAL: Extremities without clubbing, cyanosis, or edema. NEURO: Alert & Oriented x4 to person, place, time, situation. Moves all ext x4 A/P Problem List: (1) Cellulitis of right lower extremity ICD Code: L03.115 Status: Acute Plan: Tolerating Bactrim and doxy, podiatry consult appreciated, follow arterial brachial indices, Toe brachial indicies Add antifungal cream (2) DM2 (diabetes mellitus, type 2) ICD Code: E11.9 Status: Chronic Plan: Controlled. Continue Lantus and sliding scale with diabetic diet (3) TUNDE (acute kidney injury) ICD Code: N17.9 Status: Acute Assessment and Plan Care plan discussed with podiatry, will follow up arterial brachial indices TBI abnormal likely discharge home in a.m. oral medicines Discharge Planning Likely home in am Amber Sanchez MD Jan 04, 2017 10:09
[2017-01-04 12:00] VITALS: BP 143/76; PULSE 68; RESP 18; TEMP 98.2; O2SAT 95
[2017-01-04 16:00] VITALS: BP 142/70; PULSE 71; RESP 18; TEMP 98.7; O2SAT 97
[2017-01-04] MEDS: ENOXAPARIN SODIUM 40 MG/0.4 ML SYRINGE SQ SCH (16:39)
--- NOTE | 2017-01-04 17:28 | RADHPO ---
EXAM DATE/TIME: 01/04/2017 16:53 [facility] COMPARISON: No previous studies available for comparison. INDICATIONS : Right foot swelling. MEDICAL HISTORY : Hypertension. Diabetes SURGICAL HISTORY : Right leg surgery ENCOUNTER: Initial ACUITY: 2 weeks PAIN SCORE: 1/10 LOCATION: Right foot FINDINGS: There is diffuse nonspecific soft tissue swelling around it. The bony structures are grossly intact. There appears to be chronic deformity at the ankle. There is some mild degenerative changes present. There is narrowing of the first metatarsal phalangeal joint. No acute fracture or joint dislocation. CONCLUSION: 1. Nonspecific diffuse soft tissue swelling. 2. Primary degenerative changes at the first metatarsophalangeal joint. Jose Beal MD on January 04, 2017 at 17:26 Board Certified Radiologist. This report was verified electronically.
--- NOTE | 2017-01-04 18:16 | MB ---
cc: ANGELITA ELIZONDO DPM DATE OF CONSULTATION: 01/04/2017. REASON FOR CONSULTATION: Right lower extremity right fourth toe purple discoloration. HISTORY OF PRESENT ILLNESS: The patient is 71-year-old male with type 2 diabetes, history of hypertension, chronic pedal edema. Previously with cellulitis for a right foot/ calf cellulitis discharged Zyvox. He returned with erythema and discoloration. There are no open wounds on the foot. REVIEW OF SYSTEMS: Six point review of systems unremarkable. PAST MEDICAL HISTORY: 1. Type 2 diabetes. 2. Hypertension. 3. Hyperlipidemia. 4. Hypothyroidism. 5. Chronic pedal edema. MEDICATIONS: Per HPI. ALLERGIES: NO KNOWN DRUG ALLERGIES. FAMILY HISTORY: Noncontributory. SOCIAL HISTORY: Denies alcohol or drugs or tobacco use. Currently lives in [place]. PHYSICAL EXAMINATION: Right lower extremity +2 pitting edema, mild erythema, no streaking. No active drainage. The skin type is woody thickened, touch. There is a beginning of hemosiderin. This deposits with hyperpigmentation. There is no pain on palpation. Range of motion of the foot and ankle within normal limits. There is no calf pain. His digits one through five on the right side are within normal limits. The capillary fill time is less than 3 seconds. Dorsalis pedis and posterior tibial pulses are diminished but likely because of the pitting edema. No maceration interdigitally. No open wounds noted. The dorsum of the right foot with macerated tissue dorsally. Protective sensation intact. LABORATORY STUDIES: WBCs on previous admission within normal limits. IMAGING STUDIES: Right foot x-ray pending. Pending bilateral blood flow studies. ASSESSMENT AND PLAN: 1. Right leg chronic cellulitis. 2. Right leg chronic venous insufficiency. RECOMMENDATIONS: My recommendation to the patient is to have a vascular consult for likely venous ablation or medical management of his chronic edema. If his right foot x-rays and the blood flow studies are within normal limits, he may be discharged with some oral antibiotics. I did discuss with the patient that he needs to follow up with vascular upon returning to [place]. All questions were answered. I did discuss the findings with the patient and my plan with Dr. Sanchez. Thank you for the kind consult. DANY Jimenes /4:42 PM /6:07 PM MTDGinny
[2017-01-04 20:00] VITALS: BP 158/80; PULSE 73; RESP 20; TEMP 98.7; O2SAT 95
[2017-01-04] MEDS: ONDANSETRON HCL 4 MG/2 ML VIAL IVP PRN (21:14)
[2017-01-05 00:19] VITALS: BP 148/79; PULSE 74; RESP 16; TEMP 98.2; O2SAT 94
[2017-01-05] MEDS: LEVOTHYROXINE SODIUM 88 MCG TAB PO SCH (06:16)
[2017-01-05] MEDS: INSULIN ASPART SUPPLEMENTAL SCALE SQ SCH ×2 (06:20→11:21)
[2017-01-05 08:00] VITALS: BP 149/73; PULSE 73; RESP 16; TEMP 97.4; O2SAT 95
[2017-01-05] MEDS: DOXYCYCLINE HYCLATE 100 MG TAB PO SCH (08:19)
[2017-01-05] MEDS: RANOLAZINE 500 MG EXTENDED RELEASE TAB PO SCH (08:19)
[2017-01-05] MEDS: SULFAMETHOXAZOLE-TRIMETHOPRIM DS 800-160 MG TAB PO SCH (08:19)
[2017-01-05] MEDS: amLODIPine BESYLATE 5 MG TAB PO SCH (08:20)
[2017-01-05] MEDS: ASPIRIN EC 81 MG TABEC PO SCH (08:20)
[2017-01-05] MEDS: FUROSEMIDE 20 MG TAB PO SCH (08:20)
[2017-01-05] MEDS: LISINOPRIL 10 MG TAB PO SCH (08:20)
[2017-01-05] MEDS: INSULIN DETEMIR 100 UNITS/ML VIAL SQ SCH (08:21)
[2017-01-05] MEDS: ATORVASTATIN 20 MG TAB PO SCH (08:21)
[2017-01-05] MEDS: TOLNAFTATE 1% CREAM 15 GM TOPICAL SCH (08:21)
[2017-01-05] MEDS: SODIUM CHLORIDE 0.9% FLUSH 5 ML FLUSH FLUSH SCH (08:22)
[2017-01-05] MEDS ORDERED: DOXY100T PO (11:10)
[2017-01-05] MEDS ORDERED: BACT800T5 PO (11:12)
--- NOTE | 2017-01-05 11:13 | HHI.DCPOC ---
Discharge Care Plan Diagnosis: (1) DM2 (diabetes mellitus, type 2) (2) Cellulitis of right lower extremity Goals to Promote Your Health * To prevent worsening of your condition and complications * To maintain your health at the optimal level Directions to Meet Your Goals Take your medications as prescribed Follow your dietary instruction Follow activity as directed Keep your appointments as scheduled Take your immunizations and boosters as scheduled If your symptoms worsen call your PCP, if no PCP go to Urgent Care Center or Emergency Room Smoking is Dangerous to Your Health. Avoid second hand smoke Call the 24-hour hour crisis hotline for domestic abuse at Amber Sanchez MD Jan 05, 2017 11:12
--- NOTE | 2017-01-05 11:15 | HHI.DS ---
Discharge Summary Admission Date Dec 31, 2016 at 13:30 Discharge Date: Jan 05, 2017 Admitting Diagnosis CELLULITIS RIGHT LEG (1) Cellulitis of right lower extremity ICD Code: L03.115 (2) DM2 (diabetes mellitus, type 2) ICD Code: E11.9 (3) TUNDE (acute kidney injury) ICD Code: N17.9 Procedures none Brief History - From Admission This is a pleasant 71-year-old male with past medical history of type 2 diabetes, hypertension and chronic pedal edema who is known to me from previous hospital admission who comes to the ER today complaining of swelling and erythema in his right foot. The patient was recently hospitalized for cellulitis of the right foot and calf and was discharged home with a prescription for Zyvox. The patient states that he has been compliant with the Zyvox and have been keeping his leg elevated and wearing the LIVIA hose faithfully. Last night he started to notice the return of some erythema and swelling of the foot. He denies fever or chills. Denies any open wounds or drainage. CBC/BMP: 01/02/17 0505 Significant Findings dion with tbi MILD DECREASE ON THE RIGHT, WNL IN LEFT Imaging Last Impressions Foot X-Ray 01/04/17 0000 Signed Impressions: Service Date/Time: Wednesday, January 04, 2017 16:53 - CONCLUSION: 1. Nonspecific diffuse soft tissue swelling. 2. Primary degenerative changes at the first metatarsophalangeal joint. Jose Beal MD PE at Discharge Right lower extremity edema with minimal erythema, lateral sloughing areas GENERAL: This is a well-nourished, well-developed patient, in no apparent distress. CARDIOVASCULAR: Regular rate and rhythm without murmurs, gallops, or rubs. RESPIRATORY: Clear to auscultation. Breath sounds equal bilaterally. No wheezes , rales, or rhonchi. GASTROINTESTINAL: Abdomen soft, non-tender, nondistended. Normal active bowel sounds MUSCULOSKELETAL: Extremities without clubbing, cyanosis, or edema. NEURO: Alert & Oriented x4 to person, place, time, situation. Moves all ext x4 Hospital Course Patient is a 71-year-old gentleman with a history of diabetes mellitus and with some venous stasis. Patient did have some cellulitic changes in his right foot that required IV antibiotics. He was treated with this and was seen also by podiatry. Patient also was given antifungal cream for his feet. Initially patient was treated with broad-spectrum antibiotics. Cultures were negative. Patient return to the emergency room and was readmitted after failure of outpatient oral antibiotic therapy. Patient did have acute kidney injury which resolved and was likely prerenal. His diabetes is well-controlled. Patient was discharged home to follow-up with his primary doctor [id number]. Pt Condition on Discharge: Good Discharge Disposition: Discharge Home Discharge Time: > 30 minutes Discharge Instructions DIET: Follow Instructions for: Diabetic Diet Activities you can perform: Regular-No Restrictions New Medications: Ciprofloxacin (Ciprofloxacin) 500 Mg Tab 500 MG PO BID Infection #14 Ref 0 TAB Doxycycline Hyclate (Doxycycline Hyclate) 100 Mg Tab 100 MG PO Q12HR Infection #14 TAB Sulfamethoxazole-Trimethoprim (Bactrim DS) 800-160 Mg Tab 1 TAB PO Q12HR Infection #14 TAB Continued Medications: Amlodipine (Amlodipine) 5 Mg Tab 5 MG PO DAILY Blood Pressure Management #[address] Ref [address] (Aspirin EC) 81 Mg Tabdr 81 MG PO DAILY Ref 0 TAB Hydrocodone-Acetaminophen (Hydrocodone-Acetaminophen) 5-325 mg Tab 1 TAB PO Q4H PRN PAIN SCALE 3 TO 5 #20 TAB (This prescription has been renewed) Insulin Aspart Inj (Novolog Inj) 1,000 Unit/10 Ml Vial 0 SQ DIRECTED Sliding Scale as directed. Blood Sugar Management #10 Ref 0 ML Insulin Glargine Inj (Lantus Inj) 100 Unit/Ml Inj 46 SQ AM Insulin Glargine Inj (Lantus Inj) 100 Unit/Ml Inj 46 SQ HS Levothyroxine (Synthroid) 88 Mcg Tab 88 MCG PO DAILY Thyroid #30 Ref 0 TAB Lisinopril (Lisinopril) 10 Mg Tab 10 MG PO DAILY #30 Ref 0 TAB Ondansetron Odt (Zofran Odt) 4 Mg Tab 8 MG SL Q6HR PRN Nausea/Vomiting #30 Ref 0 TAB Ranolazine ER 12 HR (Ranexa ER 12 HR) 500 Mg Tab 500 MG PO BID Chest Pain #60 Ref 0 TAB Rosuvastatin (Crestor) 10 Mg Tab 10 MG PO DAILY Cholesterol Management #30 Ref 0 TAB Amber Sanchez MD Jan 05, 2017 11:15
[2017-01-05] MEDS ORDERED: PHARMACY ORDERED LAB XX ONE (11:45)
[2017-01-05 12:00] VITALS: BP 153/76; PULSE 74; RESP 18; TEMP 97.8; O2SAT 97
[2017-01-05] MEDS ORDERED: CIPR500T2 PO (13:48)
[2017-01-05] MEDS ORDERED: HYDR-3516 PO (13:49)
--- NOTE | 2017-01-05 16:14 | RADRPT ---
EXAM DATE/TIME: 01/04/2017 00:00 [facility] COMPARISON: No previous studies available for comparison. INDICATIONS : Cellulitis Right Leg TECHNIQUE: Four-cuff ankle and brachial pressures were obtained. Pulse cuff waveform tracings of the ankles were recorded, and ankle-brachial indices were calculated. PRESSURES (mmHg): Brachial (arm): Right 168 Left IV SITE Ankle: Right 122 Left 160 ANIBAL: Right 0.76 Left 0.95 PULSED CUFF WAVEFORMS: Manual ANIBAL performed. No waveforms available. CONCLUSION: 1. Normal ANIBAL on the left. 2. Abnormal ANIBAL on the right. Value is suggestive of mild PVD Teddy Noel MD on January 05, 2017 at 16:11 Board Certified Radiologist. This report was verified electronically.
== END 2017-01-05 14:37 | disposition home or self-care (01) | DRG 603 ==
LOC: PHED 11:39 → PHEDA 13:30 → PH3A 14:43
PROVIDERS: ADMIT Hospitalist; ATTEND Hospitalist
DX: L03.115 Cellulitis of right lower limb (principal); N17.9 Acute kidney failure, unspecified; E11.22 Type 2 diabetes mellitus with diabetic chronic kidney disease; E87.5 Hyperkalemia; I87.2 Venous insufficiency (chronic) (peripheral); E03.9 Hypothyroidism, unspecified; E78.00 Pure hypercholesterolemia, unspecified; E78.5 Hyperlipidemia, unspecified; I12.9 Hypertensive chronic kidney disease with stage 1 through stage 4 chronic kidney disease, or unspecified chronic kidney disease; N18.9 Chronic kidney disease, unspecified; R60.0 Localized edema; E07.9 Disorder of thyroid, unspecified; Z79.4 Long term (current) use of insulin
CPT/HCPCS: 73630; 80048; 80053; 80202; 81001; 82948; 83605; 85025; 87040; 93922; 99284; J0692; J1650; J1815; J1940; J2405; J2543; J3370; J7030; J7040; J7050